=== PATIENT | male | born 1995 | race Caucasian/White ===

== ENCOUNTER 2016-08-23 12:05 | Inpatient (IN) | payer OTHER ==
[2016-08-23 17:28] VITALS: BMI 23.8
--- NOTE | 2016-08-23 20:36 | HP ---
COWS - Scale Resting Pulse: 0= [place] 80 or Below Sweatin=Flushed/Facial Moisture Restless Observation: 3= Extraneous Movement Pupil Size: 1= Pupils >than Normal Bone or Joint Aches: 2= Severe Diffuse Aches Runny Nose/ Eye Tearin= Runny Nose/Eyes GI Upset > 30mins: 2= Nausea/Diarrhea Tremor Observation: 1= Tremor [place], Not Seen Yawning Observation: 1= 1-2x During Session Anxiety or Irritability: 2=Irritable/Anxious Goose Flesh Skin: 3=Piloerection COWS Score: 19 CIWA Score - CIWA Score Nausea/Vomitin Muscle Tremors: 1-None Visible, but [place] Anxiety: 3 Agitation: 2 Paroxysmal Sweats: 3 Orientation: 1-Uncertain about Date Tacttile Disturbances: 0-None Auditory Disturbances: 0-None Visual Disturbances: 1-Very Mild Sensitivity Headache: 2-Mild CIWA-Ar Total Score: 15 Admission ROS [facility] - HPI Chief Complaint: WITHDRAWAL SYMPTOMS Allergies/Adverse Reactions: Allergies Allergy/AdvReac Type Severity Reaction Status Date / Time No Known Allergies Allergy Verified 08/23/16 17:36 History of Present Illness: 21 Y.O. MAN WITH AN EXTENSIVE HISTORY OF DRUG AND ALCOHOL DEPENDENCE IS HERE SEEKING DETOX. HE HAS HAD MULTIPLE ADMISSIONS HERE FOR DETOX AND HIS LAST BEING IN 04/2015. REPORTS HIS LONGEST PERIOD OF SOBRIETY HAS BEEN ONE YEAR. Exam Limitations: No Limitations - Ebola screening Have you traveled outside of the country in the last 21 days: No Have you had contact with anyone from an Ebola affected area: No Have you been sick,other than usual withdrawal symptoms: No Do you have a fever: No - Review of Systems Constitutional: Chills, Diaphoresis, Loss of Appetite, Malaise, Night Sweats, Changes in sleep EENT: reports: Tearing, Nose Congestion Respiratory: reports: No Symptoms reported Cardiac: reports: No Symptoms Reported GI: reports: Diarrhea, Nausea : reports: No Symptoms Reported Musculoskeletal: reports: Back Pain, Joint Pain, Neck Pain Integumentary: reports: No Symptoms Reported Neuro: reports: Headache Endocrine: reports: No Symptoms Reported Hematology: reports: No Symptoms Reported Psychiatric: reports: Mood/Affect Appropiate, Anxious, Depressed Other Systems: Reviewed and Negative Patient History - Patient Medical History Hx Anemia: No Hx Asthma: No Hx Chronic Obstructive Pulmonary Disease (COPD): No Hx Cancer: No Hx Cardiac Disorders: No Hx Congestive Heart Failure: No Hx Hypertension: No Hx Hypercholesterolemia: No Hx Pacemaker: No HX Cerebrovascular Accident: No Hx Seizures: No Hx Dementia: No Hx Diabetes: No Hx Gastrointestinal Disorders: No Hx Liver Disease: No Hx Genitourinary Disorders: No Hx Sexually Transmitted Disorders: No Hx Renal Disease (ESRD): No Hx Thyroid Disease: No Hx Human Immunodeficiency Virus (HIV): No (last 11/20 negative) Hx Hepatitis C: No Hx Depression: Yes Hx Suicide Attempt: No Hx Bipolar Disorder: No Hx Schizophrenia: No - Patient Surgical History Past Surgical History: No Hx Neurologic Surgery: No Hx Cataract Extraction: No Hx Cardiac Surgery: No Hx Lung Surgery: No Hx Breast Surgery: No Hx Breast Biopsy: No Hx Abdominal Surgery: No Hx Appendectomy: No Hx Cholecystectomy: No Hx Genitourinary Surgery: No Hx Section: No Hx Orthopedic Surgery: No Anesthesia Reaction: No - PPD History Previous Implant?: Yes Documented Results: Negative w/o proof Implanted On Prior [facility] Admission?: Yes Date: 12/03/14 Results: 0 MM PPD to be Administered?: Yes - Reproductive History Patient is a Female of Child Bearing Age (11 -55 yrs old): No - Smoking Cessation Smoking history: Current every day smoker Have you smoked in the past 12 months: Yes Aproximately how many cigarettes per day: 10 Cigars Per Day: 0 Hx Chewing Tobacco Use: No Initiated information on smoking cessation: Yes 'Breaking Loose' booklet given: 08/23/16 - Substance & Tx. History Hx Alcohol Use: Yes Hx Substance Use: Yes Substance Use Type: Alcohol, Cocaine, Heroin, Marijuana Hx Substance Use Treatment: Yes (LAST DETOX WAS HERE: 04/2015; LAST REHAB 08/[address] [facility]) - Substances Abused Heroin Route: Injection Frequency: Daily Amount used: 10 BAGS Age of first use: 17 Date of Last Use: 08/23/16 Alcohol Route: Oral Frequency: Daily Amount used: 2 PINTS RUM Age of first use: 13 Date of Last Use: 08/23/16 Crack Route: Smoking Frequency: Daily Amount used: $50 Age of first use: 19 Date of Last Use: 08/23/16 Marijuana/Hashish Route: Smoking Frequency: 1-2 times per week Amount used: $20 Age of first use: 14 Date of Last Use: 08/16/16 Family Disease History - Family Disease History Family History: Denies Admission Physical Exam [facility] - Vital Signs Vital Signs: Vital Signs - 24 hr 08/23/16 17:26 Temperature 97.1 F L Pulse Rate 59 L Respiratory 20 Rate Blood Pressure 119/76 - Physical General Appearance: Yes: Irritable, Anxious HEENTM: Yes: Normocephalic, Normal Voice Respiratory: Yes: Lungs Clear, Normal Breath Sounds, No Respiratory Distress, No Accessory Muscle Use Neck: Yes: No masses,lesions,Nodules, Trachea in good position Breast: Yes: Breast Exam Deferred Cardiology: Yes: Regular Rhythm, Bradycardia Abdominal: Yes: Non Tender, Flat, Soft Genitourinary: Yes: Other (NO COMPLAINTS REPORTED) Back: Yes: Normal Inspection Musculoskeletal: Yes: Gait Steady Extremities: Yes: Normal Inspection, Normal Range of Motion, Non-Tender Neurological: Yes: Alert, Normal Mood/Affect, Normal Response Integumentary: Yes: Normal Color, Dry, Warm, Track Christian Lymphatic: Yes: Within Normal Limits - Diagnostic (1) Alcohol dependence with uncomplicated withdrawal Current Visit: Yes Status: Chronic (2) Cannabis dependence Current Visit: Yes Status: Chronic (3) Cocaine dependence with withdrawal Current Visit: Yes Status: Chronic (4) Sedative, hypnotic, or anxiolytic withdrawal Current Visit: Yes Status: Chronic (5) Nicotine dependence Current Visit: Yes Status: Chronic Qualifiers: Nicotine product type: cigarettes Substance use status: uncomplicated Qualified Code(s): F17.210 - Nicotine dependence, cigarettes, uncomplicated Cleared for Admission [facility] - Detox or Rehab [facility] Level of Care: Medically Managed Detox Regimen/Protocol: Methadone/Valium [facility] Breath Alcohol Content Breath Alcohol Content: 0 Urine Drug Screen - Results Drug Screen Negative: No Urine Drug Screen Results: THC-Marijuana, JULI-Cocaine, OPI-Opiates
[2016-08-23] MEDS ORDERED: MAGNESIUM CITRATE 300 ML BOTTLE PO PRN (20:45)
[2016-08-23] MEDS ORDERED: LOPERAMIDE HCL 2 MG CAPSULE PO PRN (20:45)
[2016-08-23] MEDS ORDERED: diazePAM 5 MG TABLET PO ONE (20:45)
[2016-08-23] MEDS ORDERED: guaiFENesin/D-METHORPHAN HB 10 ML UNIT-DOSE CUPS PO PRN (20:45)
[2016-08-23] MEDS ORDERED: ACETAMINOPHEN 325 MG TABLET (FP) PO PRN (20:45)
[2016-08-23] MEDS ORDERED: NICOTINE POLACRILEX 2 MG GUM BC PRN (20:45)
[2016-08-23] MEDS ORDERED: METHADONE HCL 10 MG TABLET (FOR DETOX USE ONLY) PO ONE ×2 (20:45→23:00)
[2016-08-23] MEDS ORDERED: hydrOXYzine PAMOATE 50 MG CAPSULE (FP) PO PRN (20:45)
[2016-08-23] MEDS ORDERED: MENTHOL/PHENOL 1 EACH UD MM PRN (20:45)
[2016-08-23] MEDS ORDERED: diphenhydrAMINE HCL 50 MG CAPSULE PO PRN (20:45)
[2016-08-23] MEDS ORDERED: MAG HYDROX/AL HYDROX/SIMETH 30 ML UNIT-DOSE CUP PO PRN (20:45)
[2016-08-23] MEDS ORDERED: P-EPHED 60MG/TRIPROLIDI 2.5MG TABLET PO PRN (20:45)
[2016-08-23] MEDS ORDERED: MAGNESIUM HYDROX 2400MG/30ML ORAL SUSPENSION 30 ML CUP PO PRN (20:45)
[2016-08-23] MEDS ORDERED: IBUPROFEN 400 MG TABLET (FP) PO PRN (20:45)
[2016-08-23] MEDS: diazePAM 5 MG TABLET PO SCH (22:33)
[2016-08-23] MEDS: THIAMINE HCL 100 MG TABLET (FP) PO SCH (22:33)
[2016-08-23 22:58] LABS: URINE APPEARANCE TURBID; URINE BILIRUBIN NEGATIVE (NEGATIVE); URINE BLOOD NEGATIVE (NEGATIVE); URINE COLOR YELLOW; URINE GLUCOSE (UA) NEGATIVE (NEGATIVE); URINE KETONE NEGATIVE (NEGATIVE); URINE LEUK ESTERASE NEGATIVE (NEGATIVE); URINE NITRITE NEGATIVE (NEGATIVE)
[2016-08-23 23:12] LABS: URINE PROTEIN 1+ (NEGATIVE)
[2016-08-23 23:18] LABS: CALCIUM OXALATE CRYSTALS RARE /hpf (NONE SEEN); URINE MUCUS MANY; URINE RBC 3 /hpf (0-3)
[2016-08-24] MEDS: diazePAM 5 MG TABLET PO PRN ×5 (02:01→19:57)
[2016-08-24] MEDS: diazePAM 5 MG TABLET PO SCH ×3 (05:02→22:27)
[2016-08-24] MEDS ORDERED: METHADONE HCL 10 MG TABLET (FOR DETOX USE ONLY) PO SCH (10:00)
[2016-08-24 10:23] LABS: MCHC 33.6 g/dl (32.0-35.9); MEAN CELL VOLUME 86.4 fl (80-96); MEAN PLT VOLUME 7.5 fl (7.5-11.1); PLATELET COUNT 161 K/MM3 (134-434); RDW 12.9 % (11.9-15.9); WHITE BLOOD COUNT 4.5 K/mm3 (4.0-10.0)
[2016-08-24] MEDS: NICOTINE 14 MG/24 HOURS TOPICAL PATCH TD SCH (10:26)
[2016-08-24] MEDS: PRENATAL VITAMINS W/ FOLIC ACID TABLET (FP) PO SCH (10:26)
[2016-08-24 10:39] LABS: ALBUMIN 4.1 g/dl (3.4-5.0); ALK PHOS 58 U/L (45-117); ANION GAP 7 (8-16); BILIRUBIN,TOTAL 0.9 mg/dL (0.2-1.0); CALCIUM 9.4 mg/dL (8.5-10.1); CO2 32 mmol/L (21-32); GLUCOSE,RANDOM 79 mg/dL (74-106); SGOT/AST 19 U/L (15-37); SGPT/ALT 26 U/L (12-78); TOT PROT 7.4 g/dl (6.4-8.2)
--- NOTE | 2016-08-24 11:10 | EKG ---
Test Reason : Blood Pressure : / mmHG Vent. Rate : 056 BPM Atrial Rate : 056 BPM P-R Int : 096 ms QRS Dur : 088 ms QT Int : 444 ms P-R-T Axes : -05 073 039 degrees QTc Int : 428 ms SINUS BRADYCARDIA WITH SHORT NC OTHERWISE NORMAL ECG NO PREVIOUS ECGS AVAILABLE Confirmed by OSIEL ALAN MD ([id number]) on 08/24/2016 11:09:45 AM Referred By: Confirmed By:OSIEL ALAN MD
--- NOTE | 2016-08-24 11:32 | PN ---
[facility] CIWA - CIWA Score Nausea/Vomitin Muscle Tremors: 1-None Visible, but [place] Anxiety: 3 Agitation: 2 Paroxysmal Sweats: 3 Orientation: 0-Oriented Tacttile Disturbances: 3-Moderate Itch/Numb/Burn Auditory Disturbances: 2-Mild Harshness/Frighten Visual Disturbances: 2-Mild Sensitivity Headache: 0-None Present CIWA-Ar Total Score: 18 S COWS - Scale Resting Pulse: 0= [place] 80 or Below Sweatin= Chills/Flushing Restless Observation: 1= Difficult to Sit Still Pupil Size: 0= Normal to Room Light Bone or Joint Aches: 2= Severe Diffuse Aches Runny Nose/ Eye Tearin= Nasal Congestion GI Upset > 30mins: 1= Stomach Cramp Tremor Observation of Outstretched Hands: 0= None Yawning Observation: 1= 1-2x During Session Anxiety or Irritability: 2=Irritable/Anxious Goose Flesh Skin: 3=Piloerection COWS Score: 12 S Progress Note (SOAP) Subjective: Interrupted sleep, Sweating, Stomach Cramping, Constipation, Body Aches. Objective: PT. A & O X 3, OBSERVED AMBULATING ON UNIT. NO ACUTE DISTRESS. 08/24/16 11:29 Vital Signs Temperature 96.2 F L 08/24/16 09:53 Pulse Rate 73 08/24/16 09:53 Respiratory Rate 20 08/24/16 09:53 Blood Pressure 113/75 08/24/16 09:53 O2 Sat by Pulse Oximetry (%) Laboratory Tests 08/23/16 08/24/16 08/24/16 20:56 06:30 06:30 WBC 4.5 RBC 5.08 Hgb 14.7 Hct 43.9 MCV 86.4 MCH 29.0 MCHC 33.6 RDW 12.9 Plt Count 161 D MPV 7.5 Sodium 139 Potassium 4.4 Chloride 100 Carbon Dioxide 32 Anion Gap 7 L BUN 9 Creatinine 1.0 Creat Clearance w eGFR > 60 Random Glucose 79 Calcium 9.4 Total Bilirubin 0.9 AST 19 ALT 26 D Alkaline Phosphatase 58 Total Protein 7.4 Albumin 4.1 Urine Color Yellow Urine Appearance Turbid Urine pH 5.0 Urine Protein 1+ H Urine Glucose (UA) Negative Urine Ketones Negative Urine Blood Negative Urine Nitrite Negative Urine Bilirubin Negative Urine Urobilinogen 2.0 Ur Leukocyte Esterase Negative Urine RBC 3 Urine WBC None Calcium Oxalate Crystal Rare Urine Mucus Many LABS NOTED. RPR RESULT PENDING. 08/24/16 11:32 Assessment: 08/24/16 11:31 WITHDRAWAL SYMPTOMS. Plan: CONTINUE DETOX.
--- NOTE | 2016-08-24 11:42 | CONSULT ---
[facility] Psychiatric Consult - Data Date of interview: 08/24/16 Admission source: [facility] Identifying data: This is one of multiple admissions to [facility] for this 21 y/ o male seeking detox treatment on 3 for marijuana,alcohol, cocaine (crack) and heroin dependence.Patient is single without children, domiciled and supported by his parents. Substance Abuse History: heavy,Patient reportedly started using heroin at age 17 (10 bags daily via IV route),alcohol since age 13 (daily consumption of 2 pints of rum),marijuana (20 dollars for use twice a week),crack (100 dollars a day) since age 19.Mr Martinez reports smoking 1/2 pack of cigarettes/ day.Substances are reported used as of 08/23/16. Medical History: Patient endorses good general health. Psychiatric History: Patient,to this interviewer,denies history of psychiatric illness or hospitalizations.However a review of records reveals this account by Dr Starr,[facility] psychiatrist at [facility] (imported note of 04/03/15) : " reports as child he started exhibiting symptoms of OCD and Social Anxiety Disorder. 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 At 14, while mandated to [facility] for 3 months, he saw a psychiatrist, was diagnosed with OCD & Social Anxiety Disorder and treated with Prozac and Klonopin. For some reason, he said he was discharged with no referal and medication. At age 16 while in rehab at [facility] for 28 days, he was prescribed Luvox. After he was discharged from [facility], he saw a private psychiatrist in [place], [place] for 4 months and was continued on Luvox and prescribed Klonopin as well ." End of report.Mr Martinez remains unconcerned by this report which contradicts his current statements.He endorses insomnia and requests addition of zolpidem to this regimen of medications. Physical/Sexual Abuse/Trauma History: Patient denies. Additional Comment: Urine Drug Screen Results: THC-Marijuana, JULI-Cocaine, OPI- Opiates.Noted from [facility] report. Mental Status Exam - Mental Status Exam Alert and Oriented to: Time, Place, Person Cognitive Function: Good Patient Appearance: Well Groomed Mood: Euthymic Affect: Appropriate, Normal Range Patient Behavior: Appropriate, Cooperative Speech Pattern: Clear Voice Loudness: Normal Thought Process: Goal Oriented Thought Disorder: Not Present Hallucinations: Denies Suicidal Ideation: Denies Homicidal Ideation: Denies Insight/Judgement: Poor Sleep: Poorly, Difficulty falling asleep Appetite: Good Muscle strength/Tone: Normal Gait/Station: Normal Psychiatric Findings - Problem List ([place] 1, 2,3) (1) Alcohol dependence with uncomplicated withdrawal Current Visit: Yes Status: Acute (2) Cannabis dependence Current Visit: Yes Status: Acute (3) Cocaine dependence with withdrawal Current Visit: Yes Status: Acute (4) Sedative, hypnotic, or anxiolytic withdrawal Current Visit: Yes Status: Acute (5) Opioid dependence with withdrawal Current Visit: Yes Status: Acute (6) Nicotine dependence Current Visit: Yes Status: Acute Qualifiers: Nicotine product type: cigarettes Substance use status: uncomplicated Qualified Code(s): F17.210 - Nicotine dependence, cigarettes, uncomplicated (7) Substance induced mood disorder Current Visit: Yes Status: Acute (8) Insomnia Current Visit: Yes Status: Acute - Initial Treatment Plan Initial Treatment Plan: Psychoeducation provided.Previous records reviewed.[facility] report is appreciated.Detoxification is under way.Ambien 10 mg po hs prn.Patient is made aware of the potential for parasomnias.He is in agreement with this careplan.Observation.
[2016-08-24] MEDS ORDERED: ONDANSETRON *ODT* 4 MG TABLET SL PRN (21:05)
[2016-08-24] MEDS: BACITRACIN 0.9 GM PACKET TP SCH (22:27)
[2016-08-24] MEDS: ZOLPIDEM TARTRATE 10 MG TABLET (PARK CARE ONLY) PO PRN (22:27)
[2016-08-24] MEDS: THIAMINE HCL 100 MG TABLET (FP) PO SCH (22:27)
[2016-08-25] MEDS: diazePAM 5 MG TABLET PO PRN ×3 (05:41→19:28)
[2016-08-25] MEDS ORDERED: TRIMETHOBENZAMIDE HCL 200MG/2ML INJ IM ONE (07:04)
--- NOTE | 2016-08-25 07:06 | PN ---
S Progress Note Note: HAVING HICCUP,TO GIVE TIGAN 200 MGS IM,CONTINUE DETOX
[2016-08-25] MEDS ORDERED: METOCLOPRAMIDE HCL 10 MG TABLET (FP) PO ONE (09:56)
[2016-08-25] MEDS: diazePAM 5 MG TABLET PO SCH ×2 (10:29→22:27)
[2016-08-25] MEDS: BACITRACIN 0.9 GM PACKET TP SCH ×2 (10:29→22:26)
[2016-08-25] MEDS: PRENATAL VITAMINS W/ FOLIC ACID TABLET (FP) PO SCH (10:30)
[2016-08-25] MEDS: METHADONE HCL 5 MG TABLET (FOR DETOX USE ONLY) PO SCH (10:30)
[2016-08-25] MEDS: NICOTINE 14 MG/24 HOURS TOPICAL PATCH TD SCH (10:30)
--- NOTE | 2016-08-25 12:39 | PN ---
[facility] CIWA - CIWA Score Nausea/Vomitin-Int. Nausea w/Dry Heave Muscle Tremors: 2 Anxiety: 3 Agitation: 3 Paroxysmal Sweats: 3 Orientation: 0-Oriented Tacttile Disturbances: 2-Mild Itch/Numbness/Burn Auditory Disturbances: 0-None Visual Disturbances: 0-None Headache: 0-None Present CIWA-Ar Total Score: 17 S COWS - Scale Resting Pulse: 0= [place] 80 or Below Sweatin=Flushed/Facial Moisture Restless Observation: 1= Difficult to Sit Still Pupil Size: 0= Normal to Room Light Bone or Joint Aches: 1= Mild Discomfort Runny Nose/ Eye Tearin= Runny Nose/Eyes GI Upset > 30mins: 2= Nausea/Diarrhea Tremor Observation of Outstretched Hands: 0= None Yawning Observation: 1= 1-2x During Session Anxiety or Irritability: 2=Irritable/Anxious Goose Flesh Skin: 3=Piloerection COWS Score: 14 [facility] Progress Note (SOAP) Subjective: Sweating, Stomach Cramping, Nausea. Pt. also reporting hiccups persisting since last night. Objective: PT. A & O X 3, OBSERVED AMBULATING ON UNIT. NO ACUTE DISTRESS. 08/25/16 12:37 Vital Signs Temperature 96.7 F L 08/25/16 09:18 Pulse Rate 62 08/25/16 09:18 Respiratory Rate 18 08/25/16 09:18 Blood Pressure 96/53 08/25/16 09:18 O2 Sat by Pulse Oximetry (%) Laboratory Tests 08/23/16 08/24/16 08/24/16 20:56 06:30 06:30 WBC 4.5 RBC 5.08 Hgb 14.7 Hct 43.9 MCV 86.4 MCH 29.0 MCHC 33.6 RDW 12.9 Plt Count 161 D MPV 7.5 Sodium 139 Potassium 4.4 Chloride 100 Carbon Dioxide 32 Anion Gap 7 L BUN 9 Creatinine 1.0 Creat Clearance w eGFR > 60 Random Glucose 79 Calcium 9.4 Total Bilirubin 0.9 AST 19 ALT 26 D Alkaline Phosphatase 58 Total Protein 7.4 Albumin 4.1 Urine Color Yellow Urine Appearance Turbid Urine pH 5.0 Ur Specific [place] 1.025 Urine Protein 1+ H Urine Glucose (UA) Negative Urine Ketones Negative Urine Blood Negative Urine Nitrite Negative Urine Bilirubin Negative Urine Urobilinogen 2.0 Ur Leukocyte Esterase Negative Urine RBC 3 Urine WBC None Calcium Oxalate Crystal Rare Urine Mucus Many RPR Titer 08/24/16 06:30 WBC RBC Hgb Hct MCV MCH MCHC RDW Plt Count MPV Sodium Potassium Chloride Carbon Dioxide Anion Gap BUN Creatinine Creat Clearance w eGFR Random Glucose Calcium Total Bilirubin AST ALT Alkaline Phosphatase Total Protein Albumin Urine Color Urine Appearance Urine pH Ur Specific [place] Urine Protein Urine Glucose (UA) Urine Ketones Urine Blood Urine Nitrite Urine Bilirubin Urine Urobilinogen Ur Leukocyte Esterase Urine RBC Urine WBC Calcium Oxalate Crystal Urine Mucus RPR Titer Nonreactive LABS NOTED. Assessment: 08/25/16 12:37 WITHDRAWAL SYMPTOMS. Plan: CONTINUE DETOX. REGLAN, 10 MG PO X 1 FOR NAUSEA / HICCUPS.
[2016-08-25] MEDS ORDERED: chlorproMAZINE HCL 25 MG TABLET PO ONE (15:15)
[2016-08-25] MEDS ORDERED: BACLOFEN 10 MG TABLET (FP) PO ONE ×2 (15:25→23:02)
--- NOTE | 2016-08-25 15:57 | PN ---
[facility] Progress Note Note: Patient reports that hiccups are persisting with no effect from dose of Reglan administered earlier. Baclofen, 10 mg PO X 1 ordered. Will continue to monitor. Buck Juárez NP
[2016-08-25] MEDS: THIAMINE HCL 100 MG TABLET (FP) PO SCH (22:27)
[2016-08-25] MEDS: CYCLOBENZAPRINE HCL 10 MG TABLET (FP) PO PRN (22:27)
[2016-08-25] MEDS: ZOLPIDEM TARTRATE 10 MG TABLET (PARK CARE ONLY) PO PRN (22:27)
[2016-08-26] MEDS: diazePAM 5 MG TABLET PO PRN ×3 (05:56→19:57)
[2016-08-26] MEDS: diazePAM 5 MG TABLET PO SCH ×2 (10:32→22:27)
[2016-08-26] MEDS: PRENATAL VITAMINS W/ FOLIC ACID TABLET (FP) PO SCH (10:32)
[2016-08-26] MEDS: METHADONE HCL 5 MG TABLET (FOR DETOX USE ONLY) PO SCH (10:32)
[2016-08-26] MEDS: BACITRACIN 0.9 GM PACKET TP SCH ×2 (10:32→22:28)
[2016-08-26] MEDS: NICOTINE 14 MG/24 HOURS TOPICAL PATCH TD SCH (10:35)
--- NOTE | 2016-08-26 13:11 | PN ---
[facility] Progress Note (SOAP) Subjective: Interrupted Sleep, Anxious. Patient reports that hiccups that were occurring yesterday have since resolved. Objective: PT. A & O X 3, OBSERVED AMBULATING ON UNIT. NO ACUTE DISTRESS. PT. DENIES CHEST PAIN. 08/26/16 13:09 Vital Signs Temperature 98.4 F 08/26/16 09:18 Pulse Rate 56 L 08/26/16 09:18 Respiratory Rate 18 08/26/16 09:18 Blood Pressure 102/70 08/26/16 09:18 O2 Sat by Pulse Oximetry (%) Laboratory Tests 08/23/16 08/24/16 08/24/16 20:56 06:30 06:30 WBC 4.5 RBC 5.08 Hgb 14.7 Hct 43.9 MCV 86.4 MCH 29.0 MCHC 33.6 RDW 12.9 Plt Count 161 D MPV 7.5 Sodium 139 Potassium 4.4 Chloride 100 Carbon Dioxide 32 Anion Gap 7 L BUN 9 Creatinine 1.0 Creat Clearance w eGFR > 60 Random Glucose 79 Calcium 9.4 Total Bilirubin 0.9 AST 19 ALT 26 D Alkaline Phosphatase 58 Total Protein 7.4 Albumin 4.1 Urine Color Yellow Urine Appearance Turbid Urine pH 5.0 Ur Specific [place] 1.025 Urine Protein 1+ H Urine Glucose (UA) Negative Urine Ketones Negative Urine Blood Negative Urine Nitrite Negative Urine Bilirubin Negative Urine Urobilinogen 2.0 Ur Leukocyte Esterase Negative Urine RBC 3 Urine WBC None Calcium Oxalate Crystal Rare Urine Mucus Many RPR Titer 08/24/16 06:30 WBC RBC Hgb Hct MCV MCH MCHC RDW Plt Count MPV Sodium Potassium Chloride Carbon Dioxide Anion Gap BUN Creatinine Creat Clearance w eGFR Random Glucose Calcium Total Bilirubin AST ALT Alkaline Phosphatase Total Protein Albumin Urine Color Urine Appearance Urine pH Ur Specific [place] Urine Protein Urine Glucose (UA) Urine Ketones Urine Blood Urine Nitrite Urine Bilirubin Urine Urobilinogen Ur Leukocyte Esterase Urine RBC Urine WBC Calcium Oxalate Crystal Urine Mucus RPR Titer Nonreactive LABS NOTED. Assessment: 08/26/16 13:09 WITHDRAWAL SYMPTOMS. Plan: CONTINUE DETOX. INCREASE PO FLUID INTAKE.
[2016-08-26] MEDS: THIAMINE HCL 100 MG TABLET (FP) PO SCH (22:27)
[2016-08-26] MEDS: ZOLPIDEM TARTRATE 10 MG TABLET (PARK CARE ONLY) PO PRN (22:27)
[2016-08-26] MEDS: CYCLOBENZAPRINE HCL 10 MG TABLET (FP) PO PRN (22:27)
[2016-08-27] MEDS ORDERED: METHADONE HCL 10 MG TABLET (FOR DETOX USE ONLY) PO SCH (10:00)
[2016-08-27] MEDS ORDERED: diazePAM 5 MG TABLET PO SCH (10:00)
[2016-08-27] MEDS: PRENATAL VITAMINS W/ FOLIC ACID TABLET (FP) PO SCH (10:22)
[2016-08-27] MEDS: BACITRACIN 0.9 GM PACKET TP SCH ×2 (10:22→21:51)
[2016-08-27] MEDS: NICOTINE 14 MG/24 HOURS TOPICAL PATCH TD SCH (10:23)
--- NOTE | 2016-08-27 21:29 | PN ---
[facility] Progress Note (SOAP) Subjective: Interrupted Sleep. Objective: PT. A & O X 3, OBSERVED AMBULATING ON UNIT. NO ACUTE DISTRESS. 08/27/16 21:27 Vital Signs Temperature 97.9 F 08/27/16 18:18 Pulse Rate 61 08/27/16 18:18 Respiratory Rate 101 H 08/27/16 18:18 Blood Pressure 103/71 08/27/16 18:18 O2 Sat by Pulse Oximetry (%) Laboratory Tests 08/23/16 08/24/16 08/24/16 20:56 06:30 06:30 WBC 4.5 RBC 5.08 Hgb 14.7 Hct 43.9 MCV 86.4 MCH 29.0 MCHC 33.6 RDW 12.9 Plt Count 161 D MPV 7.5 Sodium 139 Potassium 4.4 Chloride 100 Carbon Dioxide 32 Anion Gap 7 L BUN 9 Creatinine 1.0 Creat Clearance w eGFR > 60 Random Glucose 79 Calcium 9.4 Total Bilirubin 0.9 AST 19 ALT 26 D Alkaline Phosphatase 58 Total Protein 7.4 Albumin 4.1 Urine Color Yellow Urine Appearance Turbid Urine pH 5.0 Ur Specific [place] 1.025 Urine Protein 1+ H Urine Glucose (UA) Negative Urine Ketones Negative Urine Blood Negative Urine Nitrite Negative Urine Bilirubin Negative Urine Urobilinogen 2.0 Ur Leukocyte Esterase Negative Urine RBC 3 Urine WBC None Calcium Oxalate Crystal Rare Urine Mucus Many RPR Titer 08/24/16 06:30 WBC RBC Hgb Hct MCV MCH MCHC RDW Plt Count MPV Sodium Potassium Chloride Carbon Dioxide Anion Gap BUN Creatinine Creat Clearance w eGFR Random Glucose Calcium Total Bilirubin AST ALT Alkaline Phosphatase Total Protein Albumin Urine Color Urine Appearance Urine pH Ur Specific [place] Urine Protein Urine Glucose (UA) Urine Ketones Urine Blood Urine Nitrite Urine Bilirubin Urine Urobilinogen Ur Leukocyte Esterase Urine RBC Urine WBC Calcium Oxalate Crystal Urine Mucus RPR Titer Nonreactive LABS NOTED. Assessment: 08/27/16 21:28 WITHDRAWAL SYMPTOMS. Plan: CONTINUE DETOX.
[2016-08-27] MEDS: ZOLPIDEM TARTRATE 10 MG TABLET (PARK CARE ONLY) PO PRN (21:51)
[2016-08-27] MEDS: THIAMINE HCL 100 MG TABLET (FP) PO SCH (21:51)
[2016-08-27] MEDS: CYCLOBENZAPRINE HCL 10 MG TABLET (FP) PO PRN (21:51)
[2016-08-28] MEDS ORDERED: METHADONE HCL 5 MG TABLET (FOR DETOX USE ONLY) PO SCH (06:00)
[2016-08-28 06:01] VITALS: BP 99/65; PULSE 61; TEMP 96.7
--- NOTE | 2016-08-28 13:00 | DS ---
[facility] Detox Discharge Summary Admission Date: 08/23/16 Discharge Date: 08/28/16 - History Present History: Alcohol Dependence, Cocaine Dependence, Opioid Dependence Additional Comments: Noted with hypotension: asymptomatic, encouraged to drink lots of water Pertinent Past History: Denies - Physical Exam Results Vital Signs: Vital Signs Temperature 96.7 F L 08/28/16 06:00 Pulse Rate 61 08/28/16 06:00 Respiratory Rate 16 08/28/16 06:00 Blood Pressure 99/65 08/28/16 06:00 O2 Sat by Pulse Oximetry (%) Pertinent Admission Physical Exam Findings: Withdrawal symptoms Laboratory Tests 08/23/16 08/24/16 08/24/16 20:56 06:30 06:30 WBC 4.5 RBC 5.08 Hgb 14.7 Hct 43.9 MCV 86.4 MCH 29.0 MCHC 33.6 RDW 12.9 Plt Count 161 D MPV 7.5 Sodium 139 Potassium 4.4 Chloride 100 Carbon Dioxide 32 Anion Gap 7 L BUN 9 Creatinine 1.0 Creat Clearance w eGFR > 60 Random Glucose 79 Calcium 9.4 Total Bilirubin 0.9 AST 19 ALT 26 D Alkaline Phosphatase 58 Total Protein 7.4 Albumin 4.1 Urine Color Yellow Urine Appearance Turbid Urine pH 5.0 Ur Specific [place] 1.025 Urine Protein 1+ H Urine Glucose (UA) Negative Urine Ketones Negative Urine Blood Negative Urine Nitrite Negative Urine Bilirubin Negative Urine Urobilinogen 2.0 Ur Leukocyte Esterase Negative Urine RBC 3 Urine WBC None Calcium Oxalate Crystal Rare Urine Mucus Many RPR Titer 08/24/16 06:30 WBC RBC Hgb Hct MCV MCH MCHC RDW Plt Count MPV Sodium Potassium Chloride Carbon Dioxide Anion Gap BUN Creatinine Creat Clearance w eGFR Random Glucose Calcium Total Bilirubin AST ALT Alkaline Phosphatase Total Protein Albumin Urine Color Urine Appearance Urine pH Ur Specific [place] Urine Protein Urine Glucose (UA) Urine Ketones Urine Blood Urine Nitrite Urine Bilirubin Urine Urobilinogen Ur Leukocyte Esterase Urine RBC Urine WBC Calcium Oxalate Crystal Urine Mucus RPR Titer Nonreactive Labs noted - Treatment Hospital Course: Detox Protocol Followed, Detoxed Safely, Responded well, Discharged Condition Good - Medication Discharge Medications: Ambulatory Orders NK [No Known Home Medication] 04/02/15 - Diagnosis (1) Alcohol dependence with uncomplicated withdrawal Current Visit: Yes Status: Acute (2) Cocaine dependence with withdrawal Current Visit: Yes Status: Chronic (3) Nicotine dependence Current Visit: Yes Status: Chronic Qualifiers: Nicotine product type: cigarettes Substance use status: uncomplicated Qualified Code(s): F17.210 - Nicotine dependence, cigarettes, uncomplicated (4) Opioid dependence with withdrawal Current Visit: Yes Status: Acute (5) Hypotension Current Visit: Yes Status: Acute - AMA Did Patient Leave Against Medical Advice: No
== END 2016-08-28 09:10 | disposition home or self-care (01) | DRG 773 ==
LOC: YASAS 12:05 → Y3N 17:40
PROVIDERS: ADMIT Internal Medicine Addiction Medicine; ATTEND Internal Medicine Addiction Medicine
PROC: HZ2ZZZZ Detoxification Services for Substance Abuse Treatment (ICD-10-PCS; principal; 2016-08-28)
DX: F11.23 Opioid dependence with withdrawal (principal); F13.230 Sedative, hypnotic or anxiolytic dependence with withdrawal, uncomplicated; F10.230 Alcohol dependence with withdrawal, uncomplicated; F14.23 Cocaine dependence with withdrawal; F17.210 Nicotine dependence, cigarettes, uncomplicated; F19.24 Other psychoactive substance dependence with psychoactive substance-induced mood disorder; G47.00 Insomnia, unspecified; I95.9 Hypotension, unspecified
CPT/HCPCS: 36415; 80053; 81003; 81015; 85027; 86593; 93005; 93010; J0475

== ENCOUNTER 2016-10-14 10:41 | Inpatient (IN) | payer OTHER ==
[2016-10-14 13:54] VITALS: BMI 20.6
--- NOTE | 2016-10-14 20:51 | HP ---
COWS - Scale Resting Pulse: 1= [place] 81-100 Sweatin=Flushed/Facial Moisture Restless Observation: 3= Extraneous Movement Pupil Size: 1= Pupils >than Normal Bone or Joint Aches: 2= Severe Diffuse Aches Runny Nose/ Eye Tearin= Runny Nose/Eyes GI Upset > 30mins: 2= Nausea/Diarrhea Tremor Observation: 1= Tremor [place], Not Seen Yawning Observation: 1= 1-2x During Session Anxiety or Irritability: 1=Feels Anxious/Irritable Goose Flesh Skin: 3=Piloerection COWS Score: 19 CIWA Score - CIWA Score Nausea/Vomitin-Mild Nausea/No Vomiting Muscle Tremors: 1-None Visible, but [place] Anxiety: 2 Agitation: 2 Paroxysmal Sweats: 2 Orientation: 1-Uncertain about Date Tacttile Disturbances: 1-Very Mild Itch/Numbness Auditory Disturbances: 1-Very Mild Visual Disturbances: 1-Very Mild Sensitivity Headache: 2-Mild CIWA-Ar Total Score: 14 Admission ROS S - HPI Chief Complaint: WITHDRAWAL SYMPTOMS Allergies/Adverse Reactions: Allergies Allergy/AdvReac Type Severity Reaction Status Date / Time No Known Allergies Allergy Verified 10/14/16 16:01 History of Present Illness: 21 Y.O. MAN WITH A HISTORY OF DRUG AND ALCOHOL DEPENDENCE IS HERE SEEKING DETOX. HE WAS LAST HERE FOR DETOX IN 08/2016. HE REPORTS HIS LONGEST PERIOD CLEAN HAS BEEN 10 MONTHS. Exam Limitations: No Limitations - Ebola screening Have you traveled outside of the country in the last 21 days: No Have you had contact with anyone from an Ebola affected area: No Have you been sick,other than usual withdrawal symptoms: No Do you have a fever: No - Review of Systems Constitutional: Chills, Diaphoresis, Loss of Appetite, Changes in sleep, Unintentional Wgt. Loss EENT: reports: Tearing, Nose Congestion Respiratory: reports: Shortness of Breath Cardiac: reports: No Symptoms Reported GI: reports: Constipated, Abdominal cramping : reports: No Symptoms Reported Musculoskeletal: reports: Back Pain, Neck Pain Integumentary: reports: No Symptoms Reported Neuro: reports: No Symptoms reported Endocrine: reports: No Symptoms Reported Hematology: reports: No Symptoms Reported Psychiatric: reports: Orientated x3, Anxious, Depressed Other Systems: Reviewed and Negative Patient History - Patient Medical History Hx Anemia: No Hx Asthma: No Hx Chronic Obstructive Pulmonary Disease (COPD): No Hx Cancer: No Hx Cardiac Disorders: No Hx Congestive Heart Failure: No Hx Hypertension: No Hx Hypercholesterolemia: No Hx Pacemaker: No HX Cerebrovascular Accident: No Hx Seizures: No Hx Dementia: No Hx Diabetes: No Hx Gastrointestinal Disorders: No Hx Liver Disease: No Hx Genitourinary Disorders: No Hx Sexually Transmitted Disorders: No Hx Renal Disease (ESRD): No Hx Thyroid Disease: No Hx Human Immunodeficiency Virus (HIV): No (last 07/23 negative) Hx Hepatitis C: No Hx Depression: Yes Hx Suicide Attempt: No Hx Bipolar Disorder: No Hx Schizophrenia: No - Patient Surgical History Past Surgical History: No Hx Neurologic Surgery: No Hx Cataract Extraction: No Hx Cardiac Surgery: No Hx Lung Surgery: No Hx Breast Surgery: No Hx Breast Biopsy: No Hx Abdominal Surgery: No Hx Appendectomy: No Hx Cholecystectomy: No Hx Genitourinary Surgery: No Hx Section: No Hx Orthopedic Surgery: No Anesthesia Reaction: No - PPD History Previous Implant?: Yes Documented Results: Negative w/proof Implanted On Prior R Admission?: Yes Date: 08/25/16 Results: 0 mm PPD to be Administered?: No - Reproductive History Patient is a Female of Child Bearing Age (11 -55 yrs old): No - Smoking Cessation Smoking history: Current every day smoker Have you smoked in the past 12 months: Yes Aproximately how many cigarettes per day: 10 Cigars Per Day: 0 Hx Chewing Tobacco Use: No Initiated information on smoking cessation: Yes 'Breaking Loose' booklet given: 10/14/16 - Substance & Tx. History Hx Alcohol Use: Yes Hx Substance Use: Yes Substance Use Type: Alcohol, Cocaine, Heroin Hx Substance Use Treatment: Yes (DETOX: 08/2016; REHAB:08/2016) - Substances Abused Heroin Route: Injection Amount used: 10 bags Age of first use: 17 Date of Last Use: 10/14/16 Cocaine Route: Injection Frequency: Daily Amount used: $50 Age of first use: 17 Date of Last Use: 10/13/16 Alcohol Route: Oral Frequency: Daily Amount used: 2-3 40 oz beers Age of first use: 13 Date of Last Use: 10/14/16 Family Disease History - Family Disease History Family History: Denies Admission Physical Exam BHS - Vital Signs Vital Signs: Vital Signs - 24 hr 10/14/16 13:51 Temperature 97.1 F L Pulse Rate 99 H Respiratory 18 Rate Blood Pressure 130/76 - Physical General Appearance: Yes: No Apparent Distress, Nourished, Appropriately Dressed HEENTM: Yes: Hearing grossly Normal, Normocephalic, Normal Voice Respiratory: Yes: Chest Non-Tender, Lungs Clear, Normal Breath Sounds, No Respiratory Distress, No Accessory Muscle Use Neck: Yes: No masses,lesions,Nodules, Trachea in good position Breast: Yes: Breast Exam Deferred Cardiology: Yes: Regular Rhythm, Regular Rate Abdominal: Yes: Normal Bowel Sounds, Non Tender, Flat Genitourinary: Yes: Other (NO COMPLAINTS REPORTED) Back: Yes: Normal Inspection Musculoskeletal: Yes: Back pain Extremities: Yes: Normal Capillary Refill, Normal Inspection, Normal Range of Motion, Non-Tender Neurological: Yes: planning aide II-XII NML intact, Fully Oriented, Alert, Normal Mood/ Affect, Normal Response Integumentary: Yes: Track Christian Lymphatic: Yes: Within Normal Limits - Diagnostic (1) Alcohol dependence with uncomplicated withdrawal Current Visit: Yes Status: Chronic (2) Cannabis dependence Current Visit: Yes Status: Chronic (3) Opioid dependence with withdrawal Current Visit: Yes Status: Chronic (4) Cocaine dependence with withdrawal Current Visit: Yes Status: Chronic (5) Nicotine dependence Current Visit: Yes Status: Chronic Cleared for Admission [facility] - Detox or Rehab [facility] Level of Care: Medically Managed Detox Regimen/Protocol: Methadone/Valium [facility] Breath Alcohol Content Breath Alcohol Content: 0 Urine Drug Screen - Results Drug Screen Negative: No Urine Drug Screen Results: JULI-Cocaine, OPI-Opiates
[2016-10-14] MEDS ORDERED: METHADONE HCL 10 MG TABLET (FOR DETOX USE ONLY) PO ONE ×2 (21:04→23:00)
[2016-10-14] MEDS ORDERED: diazePAM 5 MG TABLET PO ONE (21:04)
[2016-10-14] MEDS ORDERED: MAGNESIUM HYDROX 2400MG/30ML ORAL SUSPENSION 30 ML CUP PO PRN (21:04)
[2016-10-14] MEDS ORDERED: hydrOXYzine PAMOATE 50 MG CAPSULE (FP) PO PRN (21:04)
[2016-10-14] MEDS ORDERED: MAG HYDROX/AL HYDROX/SIMETH 30 ML UNIT-DOSE CUP PO PRN (21:04)
[2016-10-14] MEDS ORDERED: LOPERAMIDE HCL 2 MG CAPSULE PO PRN (21:04)
[2016-10-14] MEDS ORDERED: MENTHOL/PHENOL 1 EACH UD MM PRN (21:04)
[2016-10-14] MEDS ORDERED: guaiFENesin/D-METHORPHAN HB 10 ML UNIT-DOSE CUPS PO PRN (21:04)
[2016-10-14] MEDS ORDERED: P-EPHED 60MG/TRIPROLIDI 2.5MG TABLET PO PRN (21:04)
[2016-10-14] MEDS ORDERED: IBUPROFEN 400 MG TABLET (FP) PO PRN (21:04)
[2016-10-14] MEDS ORDERED: ACETAMINOPHEN 325 MG TABLET (FP) PO PRN (21:04)
[2016-10-14] MEDS ORDERED: MAGNESIUM CITRATE 300 ML BOTTLE PO PRN (21:04)
[2016-10-14] MEDS ORDERED: diphenhydrAMINE HCL 50 MG CAPSULE PO PRN (21:04)
[2016-10-14] MEDS: THIAMINE HCL 100 MG TABLET (FP) PO SCH (21:40)
[2016-10-14] MEDS: diazePAM 5 MG TABLET PO SCH (22:35)
[2016-10-15 00:14] LABS: URINE APPEARANCE CLEAR; URINE BILIRUBIN NEGATIVE (NEGATIVE); URINE BLOOD NEGATIVE (NEGATIVE); URINE COLOR YELLOW; URINE GLUCOSE (UA) NEGATIVE (NEGATIVE); URINE KETONE NEGATIVE (NEGATIVE); URINE LEUK ESTERASE NEGATIVE (NEGATIVE); URINE NITRITE NEGATIVE (NEGATIVE); URINE PROTEIN NEGATIVE (NEGATIVE); URINE UROBILINOGEN NEGATIVE mg/dL (0.2-1.0)
[2016-10-15] MEDS: diazePAM 5 MG TABLET PO SCH ×3 (06:34→22:16)
--- NOTE | 2016-10-15 09:29 | EKG ---
Test Reason : Blood Pressure : / mmHG Vent. Rate : 057 BPM Atrial Rate : 057 BPM P-R Int : 126 ms QRS Dur : 088 ms QT Int : 428 ms P-R-T Axes : 071 074 044 degrees QTc Int : 416 ms SINUS BRADYCARDIA WITH SINUS ARRHYTHMIA OTHERWISE NORMAL ECG Confirmed by MD NURYS, KERRI ([id number]) on 10/15/2016 9:28:54 AM Referred By: Confirmed By:KERRI NUNO MD
[2016-10-15] MEDS ORDERED: METHADONE HCL 10 MG TABLET (FOR DETOX USE ONLY) PO SCH (10:00)
[2016-10-15] MEDS: diazePAM 5 MG TABLET PO PRN ×2 (10:25→20:07)
[2016-10-15] MEDS: PRENATAL VITAMINS W/ FOLIC ACID TABLET (FP) PO SCH (10:25)
[2016-10-15 10:57] LABS: MCH 28.9 pg (25.7-33.7); MCHC 33.2 g/dl (32.0-35.9); MEAN PLT VOLUME 8.2 fl (7.5-11.1); PLATELET COUNT 209 K/MM3 (134-434); RDW 13.2 % (11.9-15.9); WHITE BLOOD COUNT 4.6 K/mm3 (4.0-10.0)
[2016-10-15 11:06] LABS: ALBUMIN 3.9 g/dl (3.4-5.0); ANION GAP 6 (8-16); CALCIUM 8.9 mg/dL (8.5-10.1); CO2 31 mmol/L (21-32)
[2016-10-15 11:12] LABS: ALK PHOS 60 U/L (45-117); BILIRUBIN,TOTAL 0.8 mg/dL (0.2-1.0); GLUCOSE,RANDOM 82 mg/dL (74-106); SGOT/AST 16 U/L (15-37); SGPT/ALT 20 U/L (12-78); TOT PROT 7.1 g/dl (6.4-8.2)
--- NOTE | 2016-10-15 11:49 | CONSULT ---
[facility] Psychiatric Consult - Data Date of interview: 10/15/16 Admission source: [facility] Identifying data: Another admission to [facility] for this 21 y/o male seeking detox treatment on for marijuana,alcohol,cocaine (crack) and heroin dependence.Patient is single without children,domiciled and supported on food stamps. Substance Abuse History: Confirmed by patient in this interview. Smoking Cessation. Smoking history: Current every day smoker. Have you smoked in the past 12 months: Yes. Aproximately how many cigarettes per day: 10. Cigars Per Day: 0. Hx Chewing Tobacco Use: No. Initiated information on smoking cessation : Yes. 'Breaking Loose' booklet given: 10/14/16. - Substance & Tx. History. Hx Alcohol Use: Yes. Hx Substance Use: Yes. Substance Use Type: Alcohol, Cocaine, Heroin. Hx Substance Use Treatment: Yes (DETOX: 08/2016; REHAB:08/2016) . - Substances Abused. Heroin. Route: Injection. Amount used: 10 bags. Age of first use: 17. Date of Last Use: 10/14/16. Cocaine. Route: Injection. Frequency: Daily. Amount used: $50. Age of first use: 17. Date of Last Use: 10/13/16. Alcohol. Route: Oral. Frequency: Daily. Amount used: 2-3 40 oz beers. Age of first use: 13. Date of Last Use: 10/14/16 Medical History: Patient denies medical problems. Psychiatric History: Patient denies history of psychiatric illness or hospitalizations.Previous records indicate otherwise,as evidenced by this report from Dr Starr (04/03/16) : " as child he started exhibiting symptoms of OCD and Social Anxiety Disorder. Told chart writer that he has a problem with frequent hand washing and rearranging things as well as feeling highly anxious in public situation to the point of experiencing symptoms of anxiety attacks. At 14, while mandated to [facility] for 3 months, he saw a psychiatrist, was diagnosed with OCD & Social Anxiety Disorder and treated with Prozac and Klonopin. For some reason, he said he was discharged with no referal and medication. At age 16 while in rehab at [facility] for 28 days, he was prescribed Luvox. After he was discharged from [facility], he saw a private psychiatrist in [place], [place] for 4 months and was continued on Luvox and prescribed Klonopin as well ." End of report.Mr Juan disagrees with this report.Denies history of suicide attempts. Physical/Sexual Abuse/Trauma History: Patient denies. Additional Comment: Urine Drug Screen Results: JULI-Cocaine, OPI-Opiates.Noted. Mental Status Exam - Mental Status Exam Alert and Oriented to: Time, Place, Person Cognitive Function: Good Patient Appearance: Unkempt, Disheveled Mood: Nervous, Withdrawn Affect: Mood Congruent Patient Behavior: Fatigued, Guarded, Cooperative (superficially cooperative) Speech Pattern: Clear Voice Loudness: Normal Thought Process: Goal Oriented Thought Disorder: Not Present Hallucinations: Denies Suicidal Ideation: Denies Homicidal Ideation: Denies Insight/Judgement: Poor Sleep: Poorly, Difficulty falling asleep (wants ambien) Appetite: Good Muscle strength/Tone: Normal Gait/Station: Normal Psychiatric Findings - Problem List ([place] 1, 2,3) (1) Alcohol dependence with uncomplicated withdrawal Current Visit: Yes Status: Acute (2) Opioid dependence with withdrawal Current Visit: Yes Status: Acute (3) Cannabis dependence Current Visit: Yes Status: Acute (4) Cocaine dependence with withdrawal Current Visit: Yes Status: Acute (5) Nicotine dependence Current Visit: Yes Status: Acute (6) Substance induced mood disorder Current Visit: Yes Status: Acute (7) Insomnia Current Visit: Yes Status: Acute - Initial Treatment Plan Initial Treatment Plan: Psychoeducation.Detoxification.Ambien 10 mg po hs.Patient is made aware of parasomnias.He agrees with this careplan.Observation.
--- NOTE | 2016-10-15 20:17 | PN ---
S CIWA - CIWA Score Nausea/Vomitin Muscle Tremors: 4-Moderate,w/Arms Extend Anxiety: 2 Agitation: 3 Paroxysmal Sweats: 3 Orientation: 0-Oriented Tacttile Disturbances: 2-Mild Itch/Numbness/Burn Auditory Disturbances: 2-Mild Harshness/Frighten Visual Disturbances: 2-Mild Sensitivity Headache: 0-None Present CIWA-Ar Total Score: 20 BHS COWS - Scale Resting Pulse: 0= [place] 80 or Below Sweatin= Chills/Flushing Restless Observation: 1= Difficult to Sit Still Pupil Size: 0= Normal to Room Light Bone or Joint Aches: 2= Severe Diffuse Aches Runny Nose/ Eye Tearin= Runny Nose/Eyes GI Upset > 30mins: 2= Nausea/Diarrhea Tremor Observation of Outstretched Hands: 2= Slight Tremor Visible Yawning Observation: 1= 1-2x During Session Anxiety or Irritability: 2=Irritable/Anxious Goose Flesh Skin: 3=Piloerection COWS Score: 16 BHS Progress Note (SOAP) Subjective: Sweating, Interrupted Sleep, Body Aches, Anxious, Poor Appetite, constipation, Stomach Cramping. Objective: PT. A & OX 3, OBSERVED AMBULATING ON UNIT. NO ACUTE DISTRESS. 10/15/16 20:17 Vital Signs Temperature 97.6 F 10/15/16 18:55 Pulse Rate 64 10/15/16 18:55 Respiratory Rate 18 10/15/16 18:55 Blood Pressure 105/68 10/15/16 18:55 O2 Sat by Pulse Oximetry (%) Laboratory Tests 10/14/16 10/15/16 10/15/16 21:55 07:50 07:50 WBC 4.6 RBC 4.98 Hgb 14.4 Hct 43.3 MCV 87.0 MCH 28.9 MCHC 33.2 RDW 13.2 Plt Count 209 D MPV 8.2 Sodium 139 Potassium 4.3 Chloride 102 Carbon Dioxide 31 Anion Gap 6 L BUN 9 Creatinine 1.0 Creat Clearance w eGFR > 60 Random Glucose 82 Calcium 8.9 Total Bilirubin 0.8 AST 16 ALT 20 D Alkaline Phosphatase 60 Total Protein 7.1 Albumin 3.9 Urine Color Yellow Urine Appearance Clear Urine pH 5.0 Ur Specific [place] 1.025 Urine Protein Negative Urine Glucose (UA) Negative Urine Ketones Negative Urine Blood Negative Urine Nitrite Negative Urine Bilirubin Negative Urine Urobilinogen Negative Ur Leukocyte Esterase Negative LABS NOTED. RPR RESULT PENDING. 10/15/16 20:19 Assessment: 10/15/16 20:18 WITHDRAWAL SYMPTOMS. Plan: CONTINUE DETOX.
[2016-10-15] MEDS: THIAMINE HCL 100 MG TABLET (FP) PO SCH (22:15)
[2016-10-16] MEDS: diazePAM 5 MG TABLET PO PRN ×3 (05:15→17:22)
[2016-10-16] MEDS: diazePAM 5 MG TABLET PO SCH ×2 (09:32→22:28)
[2016-10-16] MEDS: PRENATAL VITAMINS W/ FOLIC ACID TABLET (FP) PO SCH (09:32)
[2016-10-16] MEDS: METHADONE HCL 5 MG TABLET (FOR DETOX USE ONLY) PO SCH (09:32)
--- NOTE | 2016-10-16 16:59 | PN ---
[facility] CIWA - CIWA Score Nausea/Vomitin Muscle Tremors: 4-Moderate,w/Arms Extend Anxiety: 4-Mod. Anxious/Guarded Agitation: 3 Paroxysmal Sweats: 3 Orientation: 0-Oriented Tacttile Disturbances: 1-Very Mild Itch/Numbness Auditory Disturbances: 0-None Visual Disturbances: 0-None Headache: 1-Very Mild CIWA-Ar Total Score: 19 S COWS - Scale Resting Pulse: 0= [place] 80 or Below Sweatin= Chills/Flushing Restless Observation: 3= Extraneous Movement Pupil Size: 0= Normal to Room Light Bone or Joint Aches: 2= Severe Diffuse Aches Runny Nose/ Eye Tearin= Runny Nose/Eyes GI Upset > 30mins: 2= Nausea/Diarrhea Tremor Observation of Outstretched Hands: 2= Slight Tremor Visible Yawning Observation: 1= 1-2x During Session Anxiety or Irritability: 2=Irritable/Anxious Goose Flesh Skin: 0=Smooth Skin COWS Score: 15 S Progress Note (SOAP) Subjective: Sweating, tremor, chills, interrupted sleep, anxious Objective: 10/16/16 16:57 Last Vital Signs Temp Pulse Resp BP Pulse Ox 97.0 F L 66 18 90/59 10/16/16 13:19 10/16/16 13:19 10/16/16 13:19 10/16/16 13:19 Hypotension noted: encouraged to drink lots of water Laboratory Tests 10/14/16 10/15/16 10/15/16 21:55 07:50 07:50 WBC 4.6 RBC 4.98 Hgb 14.4 Hct 43.3 MCV 87.0 MCH 28.9 MCHC 33.2 RDW 13.2 Plt Count 209 D MPV 8.2 Sodium 139 Potassium 4.3 Chloride 102 Carbon Dioxide 31 Anion Gap 6 L BUN 9 Creatinine 1.0 Creat Clearance w eGFR > 60 Random Glucose 82 Calcium 8.9 Total Bilirubin 0.8 AST 16 ALT 20 D Alkaline Phosphatase 60 Total Protein 7.1 Albumin 3.9 Urine Color Yellow Urine Appearance Clear Urine pH 5.0 Ur Specific [place] 1.025 Urine Protein Negative Urine Glucose (UA) Negative Urine Ketones Negative Urine Blood Negative Urine Nitrite Negative Urine Bilirubin Negative Urine Urobilinogen Negative Ur Leukocyte Esterase Negative RPR Titer 10/15/16 07:50 WBC RBC Hgb Hct MCV MCH MCHC RDW Plt Count MPV Sodium Potassium Chloride Carbon Dioxide Anion Gap BUN Creatinine Creat Clearance w eGFR Random Glucose Calcium Total Bilirubin AST ALT Alkaline Phosphatase Total Protein Albumin Urine Color Urine Appearance Urine pH Ur Specific [place] Urine Protein Urine Glucose (UA) Urine Ketones Urine Blood Urine Nitrite Urine Bilirubin Urine Urobilinogen Ur Leukocyte Esterase RPR Titer Nonreactive Labs noted Assessment: 10/16/16 16:57 Withdrawal symptoms Noted with hypotension Plan: Continue detox Hypotension: asymptomatic, encouraged to drink lots of water
[2016-10-16] MEDS: THIAMINE HCL 100 MG TABLET (FP) PO SCH (22:28)
[2016-10-16] MEDS: ZOLPIDEM TARTRATE 5 MG TABLET PO PRN (22:28)
[2016-10-17] MEDS: diazePAM 5 MG TABLET PO PRN ×3 (05:34→17:45)
[2016-10-17] MEDS: METHADONE HCL 5 MG TABLET (FOR DETOX USE ONLY) PO SCH (10:23)
[2016-10-17] MEDS: diazePAM 5 MG TABLET PO SCH ×2 (10:23→22:08)
[2016-10-17] MEDS: PRENATAL VITAMINS W/ FOLIC ACID TABLET (FP) PO SCH (10:23)
--- NOTE | 2016-10-17 11:16 | PN ---
BHS Progress Note (SOAP) Subjective: nausa, sweats, interrupted sleep, anxiety, tremors Objective: 10/17/16 11:14 Vital Signs - 8 hr 10/17/16 10/17/16 10/17/16 03:40 06:30 09:19 Temperature 97.1 F L 97.1 F L Pulse Rate 76 70 Respiratory 18 16 18 Rate Blood Pressure 95/54 102/56 Laboratory Tests 10/14/16 10/15/16 10/15/16 21:55 07:50 07:50 WBC 4.6 RBC 4.98 Hgb 14.4 Hct 43.3 MCV 87.0 MCH 28.9 MCHC 33.2 RDW 13.2 Plt Count 209 D MPV 8.2 Sodium 139 Potassium 4.3 Chloride 102 Carbon Dioxide 31 Anion Gap 6 L BUN 9 Creatinine 1.0 Creat Clearance w eGFR > 60 Random Glucose 82 Calcium 8.9 Total Bilirubin 0.8 AST 16 ALT 20 D Alkaline Phosphatase 60 Total Protein 7.1 Albumin 3.9 Urine Color Yellow Urine Appearance Clear Urine pH 5.0 Ur Specific [place] 1.025 Urine Protein Negative Urine Glucose (UA) Negative Urine Ketones Negative Urine Blood Negative Urine Nitrite Negative Urine Bilirubin Negative Urine Urobilinogen Negative Ur Leukocyte Esterase Negative RPR Titer 10/15/16 07:50 WBC RBC Hgb Hct MCV MCH MCHC RDW Plt Count MPV Sodium Potassium Chloride Carbon Dioxide Anion Gap BUN Creatinine Creat Clearance w eGFR Random Glucose Calcium Total Bilirubin AST ALT Alkaline Phosphatase Total Protein Albumin Urine Color Urine Appearance Urine pH Ur Specific [place] Urine Protein Urine Glucose (UA) Urine Ketones Urine Blood Urine Nitrite Urine Bilirubin Urine Urobilinogen Ur Leukocyte Esterase RPR Titer Nonreactive Assessment: 10/17/16 11:15 [email or web address] sx, constipation Plan: cont detox, colace, senna, dietary consult requested by patient
[2016-10-17] MEDS ORDERED: SENNOSIDES 8.6MG TABLET (FP) PO ONE (11:45)
--- NOTE | 2016-10-17 14:32 | PN ---
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 ROS: Unremarkable.Patient is always visible on the unit.Active,well-controlled, sociable and ambulatory.No somatic complaints.Cognition is intact. Current Medications: Active Medications Generic Name Dose Route Start Last Admin Trade Name Freq PRN Reason Stop Dose Admin Acetaminophen 650 mg 10/14/16 21:04 Tylenol - PO Q4H PRN FEVER OR PAIN Al Hydroxide/Mg Hydroxide 30 ml 10/14/16 21:04 Mylanta Oral Suspension - PO Q6H PRN DYSPEPSIA Diazepam 10 mg 10/14/16 21:04 10/17/16 11:42 Valium - PO 10/17/16 21:04 10 mg Q4H PRN Administration WITHDRAWAL(CONT SUBST) Diazepam 5 mg 10/16/16 10:00 10/17/16 10:23 Valium - PO 10/17/16 22:01 5 mg BID CARITO Administration Diazepam 5 mg 10/18/16 10:00 Valium - PO 10/18/16 10:01 DAILY CARITO Diphenhydramine HCl 50 mg 10/14/16 21:04 Benadryl - PO HSMR1 PRN INSOMNIA Docusate Sodium 300 mg 10/17/16 22:00 Colace - PO HS CARITO Eucalyptus/Menthol/Phenol/Sorbitol 1 each 10/14/16 21:04 Cepastat Lozenge - MM Q4H PRN SORE THROAT Fluoxetine HCl 20 mg 10/18/16 10:00 Prozac - PO DAILY CARITO Guaifenesin 10 ml 10/14/16 21:04 Robitussin Dm - PO Q6H PRN COUGH Hydroxyzine Pamoate 50 mg 10/14/16 21:04 Vistaril - PO Q4H PRN AGITATION Ibuprofen 400 mg 10/14/16 21:04 Motrin - PO Q6H PRN SEVERE PAIN Loperamide HCl 4 mg 10/14/16 21:04 Imodium - PO Q6H PRN DIARRHEA Magnesium Citrate 300 ml 10/14/16 21:04 Citroma - PO Q48H PRN CONSTIPATION Magnesium Hydroxide 30 ml 10/14/16 21:04 Milk Of Magnesia - PO DAILY PRN CONSTIPATION Methadone HCl 10 mg 10/18/16 10:00 Dolophine - PO 10/18/16 10:01 DAILY CARITO Methadone HCl 5 mg 10/19/16 06:00 Dolophine - PO 10/19/16 06:01 DAILY@0600 CARITO Multivit/Folic Acid/Iron 1 tab 10/15/16 10:00 10/17/16 10:23 Vitamins (Sjr) - PO 1 tab DAILY CARITO Administration Pseudoephedrine/Triprolidine 1 combo 10/14/16 21:04 Actifed - PO TID PRN NASAL CONGESTION Thiamine HCl 100 mg 10/14/16 22:00 10/16/16 22:28 Vitamin B1 - PO 100 mg HS CARITO Administration Zolpidem Tartrate 10 mg 10/15/16 23:13 10/16/16 22:28 Ambien - PO 10 mg HS PRN Administration INSOMNIA Medication(s) Change(s): Prozac 20 mg po daily.Ordered.Side effects/benefits discussed with the patient.Made aware of potential for sexual dysfunction and suicidal ideation.Mr Martinez reports history of good tolerability.He consents ( verbally) to resume prozac. Current Side Effect: No Lab tests ordered: No Lab tests reviewed: Yes Provider note:: Met with patient,at his request,to discuss initiation of treament with an antidepressant.Patient expresses his preference for fluoxetine due to a past history of good response to that drug.Side effects/benefits reviewed with patient.Mr Martinez is educated,in this session,about the importance of adherence to OPD care and the virtues of sobriety.He is also encouraged to consider vocational training.Patient indicates that he plans to enroll in computer training classes after his discharge.Doing well in this hospital course.Mr Martinez is at his baseline. Total face to face time:: 30 Mental Status Exam - Mental Status Exam Alert and Oriented to: Time, Place, Person Cognitive Function: Good Patient Appearance: Well Groomed Mood: Hopeful, Euthymic Affect: Appropriate, Normal Range Patient Behavior: Appropriate, Cooperative Speech Pattern: Clear Voice Loudness: Normal Thought Process: Goal Oriented Thought Disorder: Not Present Hallucinations: Denies Suicidal Ideation: Denies Homicidal Ideation: Denies Insight/Judgement: Fair Sleep: Well Appetite: Good Muscle strength/Tone: Normal Gait/Station: Normal Psychiatric Treatment Plan - Problem List (1) Alcohol dependence with uncomplicated withdrawal Current Visit: Yes (2) Opioid dependence with withdrawal Current Visit: Yes (3) Cannabis dependence Current Visit: Yes (4) Cocaine dependence with withdrawal Current Visit: Yes (5) Nicotine dependence Current Visit: Yes (6) Substance induced mood disorder Current Visit: Yes (7) Insomnia Current Visit: Yes
[2016-10-17] MEDS: THIAMINE HCL 100 MG TABLET (FP) PO SCH (22:08)
[2016-10-17] MEDS: DOCUSATE SODIUM 100 MG CAPSULE (FP) PO SCH (22:08)
[2016-10-17] MEDS: ZOLPIDEM TARTRATE 5 MG TABLET PO PRN (22:08)
[2016-10-18] MEDS ORDERED: METHADONE HCL 10 MG TABLET (FOR DETOX USE ONLY) PO SCH (10:00)
[2016-10-18] MEDS ORDERED: diazePAM 5 MG TABLET PO SCH (10:00)
[2016-10-18] MEDS: FLUoxetine HCL 20 MG CAPSULE (FP) PO SCH (10:07)
[2016-10-18] MEDS: PRENATAL VITAMINS W/ FOLIC ACID TABLET (FP) PO SCH (10:07)
--- NOTE | 2016-10-18 12:11 | PN ---
BHS Progress Note (SOAP) Subjective: Interrupted sleep, Anxious, Constipation. Objective: PT. A & O X 3, OBSERVED AMBULATING ON UNIT. NO ACUTE DISTRESS. 10/18/16 12:09 Vital Signs Temperature 98.1 F 10/18/16 09:22 Pulse Rate 51 L 10/18/16 09:22 Respiratory Rate 18 10/18/16 09:22 Blood Pressure 96/57 10/18/16 09:22 O2 Sat by Pulse Oximetry (%) Laboratory Tests 10/14/16 10/15/16 10/15/16 21:55 07:50 07:50 WBC 4.6 RBC 4.98 Hgb 14.4 Hct 43.3 MCV 87.0 MCH 28.9 MCHC 33.2 RDW 13.2 Plt Count 209 D MPV 8.2 Sodium 139 Potassium 4.3 Chloride 102 Carbon Dioxide 31 Anion Gap 6 L BUN 9 Creatinine 1.0 Creat Clearance w eGFR > 60 Random Glucose 82 Calcium 8.9 Total Bilirubin 0.8 AST 16 ALT 20 D Alkaline Phosphatase 60 Total Protein 7.1 Albumin 3.9 Urine Color Yellow Urine Appearance Clear Urine pH 5.0 Ur Specific [place] 1.025 Urine Protein Negative Urine Glucose (UA) Negative Urine Ketones Negative Urine Blood Negative Urine Nitrite Negative Urine Bilirubin Negative Urine Urobilinogen Negative Ur Leukocyte Esterase Negative RPR Titer 10/15/16 07:50 WBC RBC Hgb Hct MCV MCH MCHC RDW Plt Count MPV Sodium Potassium Chloride Carbon Dioxide Anion Gap BUN Creatinine Creat Clearance w eGFR Random Glucose Calcium Total Bilirubin AST ALT Alkaline Phosphatase Total Protein Albumin Urine Color Urine Appearance Urine pH Ur Specific [place] Urine Protein Urine Glucose (UA) Urine Ketones Urine Blood Urine Nitrite Urine Bilirubin Urine Urobilinogen Ur Leukocyte Esterase RPR Titer Nonreactive LABS NOTED. Assessment: 10/18/16 12:10 WITHDRAWAL SYMPTOMS. Plan: CONTINUE DETOX. INCREASE PO FLUID INTAKE.
[2016-10-18] MEDS: DOCUSATE SODIUM 100 MG CAPSULE (FP) PO SCH (21:42)
[2016-10-18] MEDS: THIAMINE HCL 100 MG TABLET (FP) PO SCH (21:42)
[2016-10-18] MEDS: ZOLPIDEM TARTRATE 5 MG TABLET PO PRN (21:42)
[2016-10-19] MEDS ORDERED: METHADONE HCL 5 MG TABLET (FOR DETOX USE ONLY) PO SCH (06:00)
[2016-10-19 10:04] VITALS: BP 102/57; PULSE 64; TEMP 96.3
[2016-10-19] MEDS: PRENATAL VITAMINS W/ FOLIC ACID TABLET (FP) PO SCH (10:13)
[2016-10-19] MEDS: FLUoxetine HCL 20 MG CAPSULE (FP) PO SCH (10:13)
--- NOTE | 2016-10-19 12:32 | HP ---
[facility] Assess/Revision - Admission History Admitted to Rehab from: [facility] [place] - Vital signs Vital Signs: Vital Signs Period Temp Pulse Resp BP Sys/Cruz Pulse Ox Last 24 Hr 96.3 F-98.1 F 62-79 16-18 96-108/54-65 - Findings Detox History & Physical reviewed: Yes Concur with findings: Yes Comments/Additional Findings: PRIOR TO DISCHARGE FROM DETOX UNIT. PATIENT'S MEDICAL / MEDICATION HISTORY WERE REVIEWED. PATIENT WAS DISCHARGED FROM DETOX UNIT TO BE TAKEN OVER TO REHAB UNIT IN STABLE MEDICAL CONDITION.
--- NOTE | 2016-10-19 12:35 | DS ---
[facility] Detox Discharge Summary Admission Date: 10/14/16 Discharge Date: 10/19/16 - History Present History: Alcohol Dependence, Cannabis Dependence, Cocaine Dependence, Opioid Dependence Additional Comments: PATIENT GOING TO [facility] FOR AFTERCARE. PATIENT WAS DISCHARGED FROM DETOX UNIT IN STABLE MEDICAL CONDITION. Pertinent Past History: Depression, Insomnia. - Physical Exam Results Vital Signs: Vital Signs Temperature 96.3 F L 10/19/16 10:04 Pulse Rate 64 10/19/16 10:04 Respiratory Rate 18 10/19/16 10:04 Blood Pressure 102/57 10/19/16 10:04 O2 Sat by Pulse Oximetry (%) Pertinent Admission Physical Exam Findings: WITHDRAWAL SYMPTOMS. Laboratory Tests 10/14/16 10/15/16 10/15/16 21:55 07:50 07:50 WBC 4.6 RBC 4.98 Hgb 14.4 Hct 43.3 MCV 87.0 MCH 28.9 MCHC 33.2 RDW 13.2 Plt Count 209 D MPV 8.2 Sodium 139 Potassium 4.3 Chloride 102 Carbon Dioxide 31 Anion Gap 6 L BUN 9 Creatinine 1.0 Creat Clearance w eGFR > 60 Random Glucose 82 Calcium 8.9 Total Bilirubin 0.8 AST 16 ALT 20 D Alkaline Phosphatase 60 Total Protein 7.1 Albumin 3.9 Urine Color Yellow Urine Appearance Clear Urine pH 5.0 Ur Specific [place] 1.025 Urine Protein Negative Urine Glucose (UA) Negative Urine Ketones Negative Urine Blood Negative Urine Nitrite Negative Urine Bilirubin Negative Urine Urobilinogen Negative Ur Leukocyte Esterase Negative RPR Titer 10/15/16 07:50 WBC RBC Hgb Hct MCV MCH MCHC RDW Plt Count MPV Sodium Potassium Chloride Carbon Dioxide Anion Gap BUN Creatinine Creat Clearance w eGFR Random Glucose Calcium Total Bilirubin AST ALT Alkaline Phosphatase Total Protein Albumin Urine Color Urine Appearance Urine pH Ur Specific [place] Urine Protein Urine Glucose (UA) Urine Ketones Urine Blood Urine Nitrite Urine Bilirubin Urine Urobilinogen Ur Leukocyte Esterase RPR Titer Nonreactive LABS NOTED. - Treatment Hospital Course: Detox Protocol Followed, Detoxed Safely, Responded well, Discharged Condition Good, Rehab Referral Accepted Patient has Accepted a Rehab Referral to: [facility]. - Medication Discharge Medications: Ambulatory Orders Fluoxetine HCl [Prozac] 20 mg PO DAILY #30 capsule 10/19/16 - Diagnosis (1) Alcohol dependence with uncomplicated withdrawal Current Visit: Yes Status: Acute (2) Cannabis dependence Current Visit: Yes Status: Acute (3) Cocaine dependence with withdrawal Current Visit: Yes Status: Acute (4) Insomnia Current Visit: Yes Status: Acute Qualifiers: Insomnia type: unspecified Qualified Code(s): G47.00 - Insomnia, unspecified (5) Nicotine dependence Current Visit: Yes Status: Chronic Qualifiers: Nicotine product type: cigarettes Substance use status: uncomplicated Qualified Code(s): F17.210 - Nicotine dependence, cigarettes, uncomplicated (6) Opioid dependence with withdrawal Current Visit: Yes Status: Acute (7) Substance induced mood disorder Current Visit: Yes Status: Acute - AMA Did Patient Leave Against Medical Advice: No
== END 2016-10-19 12:30 | disposition other institution (70) | DRG 773 ==
LOC: YASAS 10:41 → Y3N 17:03
PROVIDERS: ADMIT Internal Medicine Addiction Medicine; ATTEND Internal Medicine Addiction Medicine
PROC: HZ2ZZZZ Detoxification Services for Substance Abuse Treatment (ICD-10-PCS; principal; 2016-10-14)
DX: F11.23 Opioid dependence with withdrawal (principal); F10.230 Alcohol dependence with withdrawal, uncomplicated; F14.23 Cocaine dependence with withdrawal; F12.20 Cannabis dependence, uncomplicated; F17.210 Nicotine dependence, cigarettes, uncomplicated; F19.24 Other psychoactive substance dependence with psychoactive substance-induced mood disorder; G47.00 Insomnia, unspecified; Z59.0 Homelessness
CPT/HCPCS: 36415; 80053; 81003; 85027; 86593; 93005; 93010

== ENCOUNTER 2016-10-19 12:36 | Inpatient (IN) | payer OTHER ==
[2016-10-19] MEDS ORDERED: IBUPROFEN 400 MG TABLET (FP) PO PRN (12:54)
[2016-10-19] MEDS ORDERED: LOPERAMIDE HCL 2 MG CAPSULE PO PRN (12:54)
[2016-10-19] MEDS ORDERED: NICOTINE POLACRILEX 2 MG GUM BUC PRN (12:54)
[2016-10-19] MEDS ORDERED: hydrOXYzine PAMOATE 50 MG CAPSULE (FP) PO PRN (12:54)
[2016-10-19] MEDS ORDERED: MENTHOL/PHENOL 1 EACH UD MM PRN (12:54)
[2016-10-19] MEDS ORDERED: MAGNESIUM HYDROX 2400MG/30ML ORAL SUSPENSION 30 ML CUP PO PRN (12:54)
[2016-10-19] MEDS ORDERED: diphenhydrAMINE HCL 50 MG CAPSULE PO PRN (12:54)
[2016-10-19] MEDS ORDERED: guaiFENesin/D-METHORPHAN HB 10 ML UNIT-DOSE CUPS PO PRN (12:54)
[2016-10-19] MEDS ORDERED: ACETAMINOPHEN 325 MG TABLET (FP) PO PRN (12:54)
[2016-10-19] MEDS ORDERED: MAG HYDROX/AL HYDROX/SIMETH 30 ML UNIT-DOSE CUP PO PRN (12:54)
[2016-10-19] MEDS ORDERED: MAGNESIUM CITRATE 300 ML BOTTLE PO PRN (12:54)
[2016-10-19] MEDS ORDERED: P-EPHED 60MG/TRIPROLIDI 2.5MG TABLET PO PRN (12:54)
--- NOTE | 2016-10-19 16:41 | HP ---
[facility] Re[facility] Assess/Revision - Admission History Admitted to Rehab from: [facility] Date of Admission to Rehab: 10/19/16 - Vital signs Vital Signs: Vital Signs Period Temp Pulse Resp BP Sys/Cruz Pulse Ox Last 24 Hr 97.9 F 62 20 116/71 - Findings Detox History & Physical reviewed: Yes Concur with findings: Yes Comments/Additional Findings: transferred from detox to rehab admission as per protocol
[2016-10-19] MEDS: THIAMINE HCL 100 MG TABLET (FP) PO SCH (21:55)
[2016-10-20] MEDS: NICOTINE 14 MG/24 HOURS TOPICAL PATCH TD SCH (10:32)
[2016-10-20] MEDS: FLUoxetine HCL 20 MG CAPSULE (FP) PO SCH (10:33)
[2016-10-20] MEDS: PRENATAL VITAMINS W/ FOLIC ACID TABLET (FP) PO SCH (10:33)
--- NOTE | 2016-10-20 14:43 | HP ---
Psychiatrist Admission - Data Date of interview: 10/20/16 Admission source: 3N Identifying data: This is the first 5N inpatient rehabilitation admission for this 21 year old male who is single without children, residing in the residential and supported on food stamps. Medical History: good physical health Psychiatric History: Patient reports he was treated for short period of time at [facility] for anxiety with Prozac and Klonopin, states never took medication for long period of time, thinks he had OCD as a child, was washing his hands, reaarniging things, had a very high anxiety at school when he needed to do presentation in class. At age 16 while in rehab at [facility] for 28 days , he wasput on Luvox, after he his discharge from the [facility], he saw a private psychiatrist in [place], [place] for 4 months and was continued on Luvox and prescribed Klonopin as well. Seen by while in detox and restarted Prozac. Physical/Sexual Abuse/Trauma History: Denies history of abuse. Vital Signs: Vital Signs - 24 hr 10/19/16 10/20/16 10/20/16 21:33 00:30 03:30 Temperature Pulse Rate 89 Respiratory 16 16 Rate Blood Pressure 119/82 10/20/16 07:04 Temperature 98.0 F Pulse Rate 55 L Respiratory 16 Rate Blood Pressure 105/54 Allergies/Adverse Reactions: Allergies Allergy/AdvReac Type Severity Reaction Status Date / Time No Known Allergies Allergy Verified 10/14/16 16:01 Date of last physical exam: 10/14/16 Concur with the findings of this exam: Yes - Substance Abuse/Tx History Hx Alcohol Use: Yes Hx Substance Use: Yes Substance Use Type: Cocaine (daily use), Heroin (1 bags daily injecting ) Hx Substance Use Treatment: Yes ([facility]) - Admission Criteria Previous failed treatment: Yes Poor recovery environment: Yes Comorbidities: Yes Lacks judgement: Yes Mental Status Exam - Mental Status Exam Alert and Oriented to: Time, Place, Person Cognitive Function: Good Patient Appearance: Well Groomed Mood: Anxious Affect: Appropriate, Mood Congruent Patient Behavior: Appropriate, Cooperative Speech Pattern: Clear, Appropriate Voice Loudness: Normal Thought Process: Intact, Goal Oriented Thought Disorder: Not Present Hallucinations: Denies Suicidal Ideation: Denies Homicidal Ideation: Denies Insight/Judgement: Fair Sleep: Fair Appetite: Fair Muscle strength/Tone: Normal Gait/Station: Normal Psychiatric Findings - Problem List ([place] 1, 2,3) (1) Opioid dependence Current Visit: Yes Status: Acute (2) Cocaine dependence Current Visit: Yes Status: Acute (3) Alcohol dependence Current Visit: Yes Status: Acute (4) NETO (generalized anxiety disorder) Current Visit: Yes Status: Acute - Initial Treatment Plan Initial Treatment Plan: will continue medication, monitor progress as needed.
[2016-10-20] MEDS: THIAMINE HCL 100 MG TABLET (FP) PO SCH (21:17)
[2016-10-21] MEDS: FLUoxetine HCL 20 MG CAPSULE (FP) PO SCH (10:11)
[2016-10-21] MEDS: NICOTINE 14 MG/24 HOURS TOPICAL PATCH TD SCH (10:11)
[2016-10-21] MEDS: PRENATAL VITAMINS W/ FOLIC ACID TABLET (FP) PO SCH (10:11)
[2016-10-21] MEDS: THIAMINE HCL 100 MG TABLET (FP) PO SCH (21:29)
[2016-10-22] MEDS: PRENATAL VITAMINS W/ FOLIC ACID TABLET (FP) PO SCH (10:09)
[2016-10-22] MEDS: FLUoxetine HCL 20 MG CAPSULE (FP) PO SCH (10:09)
[2016-10-22] MEDS: NICOTINE 14 MG/24 HOURS TOPICAL PATCH TD SCH (10:09)
[2016-10-22] MEDS: THIAMINE HCL 100 MG TABLET (FP) PO SCH (22:11)
[2016-10-23] MEDS: PRENATAL VITAMINS W/ FOLIC ACID TABLET (FP) PO SCH (10:38)
[2016-10-23] MEDS: FLUoxetine HCL 20 MG CAPSULE (FP) PO SCH (10:38)
[2016-10-23] MEDS: NICOTINE 14 MG/24 HOURS TOPICAL PATCH TD SCH (10:38)
[2016-10-23] MEDS: THIAMINE HCL 100 MG TABLET (FP) PO SCH (21:28)
[2016-10-24] MEDS: FLUoxetine HCL 20 MG CAPSULE (FP) PO SCH (10:11)
[2016-10-24] MEDS: PRENATAL VITAMINS W/ FOLIC ACID TABLET (FP) PO SCH (10:11)
[2016-10-24] MEDS: NICOTINE 14 MG/24 HOURS TOPICAL PATCH TD SCH (10:11)
[2016-10-24] MEDS: THIAMINE HCL 100 MG TABLET (FP) PO SCH (21:28)
[2016-10-25] MEDS: FLUoxetine HCL 20 MG CAPSULE (FP) PO SCH (10:20)
[2016-10-25] MEDS: NICOTINE 14 MG/24 HOURS TOPICAL PATCH TD SCH (10:20)
[2016-10-25] MEDS: PRENATAL VITAMINS W/ FOLIC ACID TABLET (FP) PO SCH (10:20)
[2016-10-25] MEDS: THIAMINE HCL 100 MG TABLET (FP) PO SCH (21:26)
[2016-10-26 06:46] VITALS: BP 121/69; PULSE 59; TEMP 97.9
[2016-10-26] MEDS: FLUoxetine HCL 20 MG CAPSULE (FP) PO SCH (10:21)
[2016-10-26] MEDS: PRENATAL VITAMINS W/ FOLIC ACID TABLET (FP) PO SCH (10:21)
[2016-10-26] MEDS: NICOTINE 14 MG/24 HOURS TOPICAL PATCH TD SCH (10:21)
--- NOTE | 2016-10-26 11:38 | PN ---
Psychiatric Progress Note Vital Signs: Vital Signs Period Temp Pulse Resp BP Sys/Cruz Pulse Ox Last 24 Hr 97.9 F 59 16-16 121/69 Date of Session: 10/26/16 Chief Complaint:: discharge visit HPI: Patient addressed alcohol, cocaine, opioid dependence comorbid NETO. ROS: WNL Current Medications: Active Medications Generic Name Dose Route Start Last Admin Trade Name Freq PRN Reason Stop Dose Admin Acetaminophen 650 mg 10/19/16 12:54 Tylenol - PO Q4H PRN FEVER OR PAIN Al Hydroxide/Mg Hydroxide 30 ml 10/19/16 12:54 Mylanta Oral Suspension - PO Q6H PRN DYSPEPSIA Diphenhydramine HCl 50 mg 10/19/16 12:54 Benadryl - PO HSMR1 PRN FOR ITCHING Eucalyptus/Menthol/Phenol/Sorbitol 1 each 10/19/16 12:54 Cepastat Lozenge - MM Q4H PRN SORE THROAT Fluoxetine HCl 20 mg 10/20/16 10:00 10/26/16 10:21 Prozac - PO 20 mg DAILY CARITO Administration Guaifenesin 10 ml 10/19/16 12:54 Robitussin Dm - PO Q6H PRN COUGH Hydroxyzine Pamoate 50 mg 10/19/16 12:54 Vistaril - PO Q4H PRN AGITATION Ibuprofen 400 mg 10/19/16 12:54 Motrin - PO Q6H PRN PAIN Loperamide HCl 4 mg 10/19/16 12:54 Imodium - PO Q6H PRN DIARRHEA Magnesium Hydroxide 30 ml 10/19/16 12:54 Milk Of Magnesia - PO DAILY PRN CONSTIPATION Nicotine 14 mg 10/20/16 10:00 10/26/16 10:21 Nicoderm Patch - TD Not Given DAILY CARITO Nicotine Polacrilex 2 mg 10/19/16 12:54 Nicorette Gum - BUC Q2H PRN NICOTINE REPLACEMENT RX Multivit/Folic Acid/Iron 1 tab 10/20/16 10:00 10/26/16 10:21 Vitamins (Sjr) - PO 1 tab DAILY CARITO Administration Pseudoephedrine/Triprolidine 1 combo 10/19/16 12:54 Actifed - PO TID PRN NASAL CONGESTION Thiamine HCl 100 mg 10/19/16 22:00 10/25/16 21:26 Vitamin B1 - PO 100 mg HS CARITO Administration Current Side Effect: No Lab tests ordered: No Lab tests reviewed: Yes Provider note:: Patient has completed today his teratment and met his identified goals, will continue to address his issues at [facility] term treatment program.He gained insights into importnace continue maintain abstinence, understands the negative consequence of his addiction. Prozac well tolerated, patient reports he feels much bettr, less anxious and more energetic, no side-effects reported, scripts provided. Patient is stable for discharge. Total face to face time:: 20 Mental Status Exam - Mental Status Exam Alert and Oriented to: Time, Place, Person Cognitive Function: Good Patient Appearance: Well Groomed Mood: Hopeful Affect: Appropriate, Mood Congruent Patient Behavior: Appropriate, Cooperative Speech Pattern: Clear, Appropriate Voice Loudness: Normal Thought Process: Intact, Goal Oriented Thought Disorder: Not Present Hallucinations: Denies Suicidal Ideation: Denies Homicidal Ideation: Denies Insight/Judgement: Fair Sleep: Fair Appetite: Good Muscle strength/Tone: Normal Gait/Station: Normal
== END 2016-10-26 11:45 | disposition home or self-care (01) | DRG 772 ==
LOC: YASAS 12:36 → Y5N 12:38
PROVIDERS: ADMIT Psychiatry & Neurology Psychiatry; ATTEND Psychiatry & Neurology Psychiatry
PROC: HZ42ZZZ Group Counseling for Substance Abuse Treatment, Cognitive-Behavioral (ICD-10-PCS; principal; 2016-10-19)
DX: F11.20 Opioid dependence, uncomplicated (principal); F10.230 Alcohol dependence with withdrawal, uncomplicated; F14.20 Cocaine dependence, uncomplicated; F41.1 Generalized anxiety disorder

== ENCOUNTER 2017-08-08 10:43 | Inpatient (IN) | payer OTHER ==
[2017-08-08 11:36] VITALS: BMI 21.5
--- NOTE | 2017-08-08 12:07 | HP ---
COWS - Scale Resting Pulse: 0= [place] 80 or Below Sweatin= Chills/Flushing Restless Observation: 3= Extraneous Movement Pupil Size: 0= Normal to Room Light Bone or Joint Aches: 4=Acute Joint/Muscle Pain Runny Nose/ Eye Tearin= Runny Nose/Eyes GI Upset > 30mins: 0= None (constipation) Tremor Observation: 1= Tremor [place], Not Seen Yawning Observation: 0= None Anxiety or Irritability: 2=Irritable/Anxious Goose Flesh Skin: 3=Piloerection COWS Score: [address] [facility] Chief Complaint: HEROIN WITHDRAWAL SX Allergies/Adverse Reactions: Allergies Allergy/AdvReac Type Severity Reaction Status Date / Time No Known Allergies Allergy Verified 08/08/17 11:20 History of Present Illness: 22 Y/O MALE WITH A HX OF HEROIN,CRACK AND XANAX DEPENDENCE SEEKING DETOX TX. PT HAS PREVIOUS DETOX TREATMENT IN THIS FACILITY.PT REPORTS ALMOST ONE YEAR PERIOD OF SOBRIETY. Exam Limitations: No Limitations - Ebola screening Have you traveled outside of the country in the last 21 days: No Have you had contact with anyone from an Ebola affected area: No Have you been sick,other than usual withdrawal symptoms: No Do you have a fever: No - Review of Systems Constitutional: Chills, Loss of Appetite, Night Sweats, Changes in sleep, Unintentional Wgt. Loss EENT: reports: Tearing, Nose Congestion Respiratory: reports: No Symptoms reported Cardiac: reports: Lightheadedness, Palpitations (DUE TO ANXIETY), Chest Tightness (DUE TO ANXIETY) GI: reports: Constipated (OIC), Diarrhea, Nausea, Poor Appetite, Poor Fluid Intake, Vomiting, Abdominal cramping (DUE TO WITHDRAWAL SX) : reports: Dysuria Musculoskeletal: reports: Back Pain, Joint Pain, Muscle Pain Integumentary: reports: Bruising (ON IVD INJ SITE) Neuro: reports: Headache, Tremors, Dizziness Endocrine: reports: No Symptoms Reported Hematology: reports: No Symptoms Reported Psychiatric: reports: Orientated x3, Anxious Other Systems: Reviewed and Negative Patient History - Patient Medical History Hx Anemia: No Hx Asthma: No Hx Chronic Obstructive Pulmonary Disease (COPD): No Hx Cancer: No Hx Cardiac Disorders: No Hx Congestive Heart Failure: No Hx Hypertension: No Hx Hypercholesterolemia: No Hx Pacemaker: No HX Cerebrovascular Accident: No Hx Seizures: No Hx Dementia: No Hx Diabetes: No Hx Gastrointestinal Disorders: No Hx Liver Disease: No Hx Genitourinary Disorders: No Hx Sexually Transmitted Disorders: No Hx Renal Disease (ESRD): No Hx Thyroid Disease: No Hx Human Immunodeficiency Virus (HIV): No (last 07/23 negative hx) Hx Hepatitis C: No Hx Depression: Yes (No meds; Requests eval) Hx Suicide Attempt: No (Denies S/I) Hx Bipolar Disorder: No Hx Schizophrenia: No - Patient Surgical History Past Surgical History: No Hx Neurologic Surgery: No Hx Cataract Extraction: No Hx Cardiac Surgery: No Hx Lung Surgery: No Hx Breast Surgery: No Hx Breast Biopsy: No Hx Abdominal Surgery: No Hx Appendectomy: No Hx Cholecystectomy: No Hx Genitourinary Surgery: No Hx Orthopedic Surgery: No Anesthesia Reaction: No - PPD History Previous Implant?: Yes Documented Results: Negative w/proof Implanted On Prior R Admission?: Yes Date: 08/25/16 Results: 0 mm PPD to be Administered?: No - Reproductive History Patient is a Female of Child Bearing Age (11 -55 yrs old): No (MALE) - Smoking Cessation Smoking history: Current every day smoker Have you smoked in the past 12 months: Yes Aproximately how many cigarettes per day: 10 Cigars Per Day: 0 Hx Chewing Tobacco Use: No Initiated information on smoking cessation: Yes 'Breaking Loose' booklet given: 08/08/17 - Substance & Tx. History Hx Alcohol Use: No (DENIES) Hx Substance Use: Yes (HEROIN/XANAX/COCAINE) Substance Use Type: Cocaine, Heroin, Tranquilizers Hx Substance Use Treatment: Yes (LAST TX AT [facility]) - Substances Abused Heroin Route: Injection Frequency: Daily Amount used: 20 bags Age of first use: 17 Date of Last Use: 08/07/17 Crack Route: Smoking Frequency: Daily Amount used: $50 Age of first use: 17 Date of Last Use: 08/07/17 Alprazolam (Xanax) Route: Oral Frequency: 3-6 times per week Amount used: 2mg Age of first use: 17 Date of Last Use: 08/04/17 Family Disease History - Family Disease History Family Disease History: Other: Mother (HTN) Admission Physical Exam BHS - Vital Signs Vital Signs: Vital Signs - 24 hr 08/08/17 11:30 Temperature 98.7 F Pulse Rate 65 Respiratory 20 Rate Blood Pressure 118/71 - Physical General Appearance: Yes: Nourished, Mild Distress, Irritable, Anxious HEENTM: Yes: EOMI, Hearing grossly Normal, Normocephalic, Normal Voice, STEPHANIE, Pharynx Normal Respiratory: Yes: Chest Non-Tender, Lungs Clear, Normal Breath Sounds, No Respiratory Distress Neck: Yes: No masses,lesions,Nodules, Supple, Trachea in good position Breast: Yes: Breast Exam Deferred Cardiology: Yes: Regular Rhythm, Regular Rate, S1, S2 Abdominal: Yes: Normal Bowel Sounds, Non Tender, Flat, Soft Genitourinary: Yes: Other (N/C) Back: Yes: Within Normal Limits Musculoskeletal: Yes: full range of Motion, Gait Steady Extremities: Yes: Normal Range of Motion, Non-Tender Neurological: Yes: pattern designer II-XII NML intact, Fully Oriented, Alert, Motor Strength 5/5 Integumentary: Yes: Normal Color, Dry, Warm, Track Christian (RIGHT ELBOW WITH RECENT IVD INJECTION SITE--SLIGHT REDNESS. NO ABCESS NOTED.) Lymphatic: Yes: Within Normal Limits - Diagnostic (1) Cocaine dependence with withdrawal Current Visit: Yes Status: Acute (2) Nicotine dependence Current Visit: Yes Status: Acute Qualifiers: Nicotine product type: cigarettes Substance use status: in withdrawal Qualified Code(s): F17.213 - Nicotine dependence, cigarettes, with withdrawal (3) Opioid dependence with withdrawal Current Visit: Yes Status: Acute (4) IVDU (intravenous drug user) Current Visit: Yes Status: Acute Cleared for Admission [facility] - Detox or Rehab [facility] Level of Care: Medically Managed Detox Regimen/Protocol: Methadone [facility] Breath Alcohol Content Breath Alcohol Content: 0 Urine Drug Screen - Results Drug Screen Negative: No Urine Drug Screen Results: JULI-Cocaine, OPI-Opiates
[2017-08-08] MEDS ORDERED: MAG HYDROX/AL HYDROX/SIMETH 30 ML UNIT-DOSE CUP PO PRN (12:21)
[2017-08-08] MEDS ORDERED: guaiFENesin/D-METHORPHAN HB 10 ML UNIT-DOSE CUPS PO PRN (12:21)
[2017-08-08] MEDS ORDERED: ACETAMINOPHEN 325 MG TABLET (FP) PO PRN (12:21)
[2017-08-08] MEDS ORDERED: LOPERAMIDE HCL 2 MG CAPSULE PO PRN (12:21)
[2017-08-08] MEDS ORDERED: MENTHOL/PHENOL 1 EACH UD MM PRN (12:21)
[2017-08-08] MEDS ORDERED: P-EPHED 60MG/TRIPROLIDI 2.5MG TABLET PO PRN (12:21)
[2017-08-08] MEDS ORDERED: NICOTINE POLACRILEX 2 MG GUM BC PRN (12:21)
[2017-08-08] MEDS ORDERED: MAGNESIUM CITRATE 300 ML BOTTLE PO PRN (12:21)
[2017-08-08] MEDS ORDERED: MAGNESIUM HYDROX 2400MG/30ML ORAL SUSPENSION 30 ML CUP PO PRN (12:21)
[2017-08-08] MEDS ORDERED: METHADONE HCL 10 MG TABLET (FOR DETOX USE ONLY) PO ONE ×2 (13:15→23:00)
[2017-08-08] MEDS: BACITRACIN 0.9 GM PACKET TP SCH ×2 (14:22→22:16)
[2017-08-08] MEDS: NICOTINE 14 MG/24 HOURS TOPICAL PATCH TD SCH (14:22)
[2017-08-08] MEDS: diazePAM 5 MG TABLET PO PRN ×3 (14:23→23:38)
[2017-08-08] MEDS: IBUPROFEN 400 MG TABLET (FP) PO PRN (14:28)
[2017-08-08 18:44] LABS: URINE APPEARANCE TURBID; URINE BILIRUBIN NEGATIVE (<2.0 mg/dL); URINE COLOR YELLOW; URINE GLUCOSE (UA) NEGATIVE (NEGATIVE); URINE KETONE NEGATIVE (NEGATIVE); URINE LEUK ESTERASE NEGATIVE (NEGATIVE); URINE NITRITE NEGATIVE (NEGATIVE)
[2017-08-08 18:58] LABS: URINE PROTEIN 2+ (NEGATIVE)
[2017-08-08 19:00] LABS: URINE BACTERIA RARE /hpf (NONE SEEN); URINE MUCUS MANY
[2017-08-08] MEDS ORDERED: MELATONIN 5 MG TABLETS PO PRN (22:00)
[2017-08-08] MEDS: THIAMINE HCL 100 MG TABLET (FP) PO SCH (22:16)
[2017-08-09] MEDS: IBUPROFEN 400 MG TABLET (FP) PO PRN ×2 (08:42→22:24)
[2017-08-09] MEDS: diazePAM 5 MG TABLET PO PRN ×4 (08:42→22:22)
--- NOTE | 2017-08-09 09:02 | EKG ---
Test Reason : Blood Pressure : / mmHG Vent. Rate : 061 BPM Atrial Rate : 061 BPM P-R Int : 134 ms QRS Dur : 092 ms QT Int : 416 ms P-R-T Axes : 072 072 049 degrees QTc Int : 418 ms NORMAL SINUS RHYTHM NORMAL ECG WHEN COMPARED WITH ECG OF 12-DEC-2016 23:16, NO SIGNIFICANT CHANGE WAS FOUND Confirmed by OSIEL ALAN MD ([id number]) on 08/09/2017 9:02:12 AM Referred By: Confirmed By:OSIEL ALAN MD
--- NOTE | 2017-08-09 09:10 | CONSULT ---
[facility] Psychiatric Consult - Data Date of interview: 08/09/17 Identifying data: Patient is a 22 year old single male, without kids, domiciled and employed. This is one of multiple admissions for patient. Pt admitted for opiate dependence. Substance Abuse History: Smoking Cessation. Smoking history: Current every day smoker. Have you smoked in the past 12 months: Yes. Aproximately how many cigarettes per day: 10. Cigars Per Day: 0. Hx Chewing Tobacco Use: No. Initiated information on smoking cessation: Yes. 'Breaking Loose' booklet given : 08/08/17. - Substance & Tx. History. Hx Alcohol Use: No (DENIES). Hx Substance Use: Yes (HEROIN/XANAX/COCAINE). Substance Use Type: Cocaine, Heroin , Tranquilizers. Hx Substance Use Treatment: Yes (LAST TX AT [facility]). - Substances Abused. Heroin. Route: Injection. Frequency: Daily. Amount used: 20 bags. Age of first use: 17. Date of Last Use: 08/07/17. Crack. Route: Smoking. Frequency: Daily. Amount used: $50. Age of first use: 17. Date of Last Use: 08/07/17. Alprazolam (Xanax). Route: Oral. Frequency: 3- 6 times per week. Amount used: 2mg. Age of first use: 17. Date of Last Use: 08/04/17 Medical History: Denies. Psychiatric History: Patient denies h/o psychiatric hospitalizations and suicide attempt. OPD was provided at [facility] ([facility] in [facility] over one year ago. [facility] was a rehab program in which patient was receiving suboxone. Patient reports poor sleep. Physical/Sexual Abuse/Trauma History: Denies. Mental Status Exam - Mental Status Exam Alert and Oriented to: Time, Place, Person Cognitive Function: Good Patient Appearance: Well Groomed Mood: Hopeful Affect: Mood Congruent Patient Behavior: Appropriate, Cooperative Speech Pattern: Clear, Appropriate Voice Loudness: Normal Thought Process: Intact, Goal Oriented Hallucinations: Denies Suicidal Ideation: Denies Homicidal Ideation: Denies Insight/Judgement: Poor Sleep: Poorly Appetite: Fair Muscle strength/Tone: Normal Gait/Station: Normal Psychiatric Findings - Problem List ([place] 1, 2,3) (1) Cocaine dependence with withdrawal Current Visit: Yes Status: Acute (2) Nicotine dependence Current Visit: Yes Status: Chronic Qualifiers: Nicotine product type: cigarettes Substance use status: in withdrawal Qualified Code(s): F17.213 - Nicotine dependence, cigarettes, with withdrawal (3) Opioid dependence with withdrawal Current Visit: Yes Status: Acute (4) Insomnia Current Visit: Yes Status: Acute Qualifiers: Insomnia type: unspecified Qualified Code(s): G47.00 - Insomnia, unspecified - Initial Treatment Plan Initial Treatment Plan: Psychoeducation provided. Detoxification in progress. Ambien 10mg qhs prn ordered. Benefits and side effects discussed. Pt. made aware of the risk parasomnia. Verbal consent given.
[2017-08-09 09:38] LABS: HEMATOCRIT 36.3 % (35.4-49); HEMOGLOBIN 12.3 GM/dL (11.7-16.9); MCH 29.1 pg (25.7-33.7); MEAN CELL VOLUME 85.6 fl (80-96); MEAN PLT VOLUME 8.7 fl (7.5-11.1); PLATELET COUNT 167 K/MM3 (134-434); RBC 4.24 M/mm3 (4.00-5.60); RDW 12.2 % (11.9-15.9); WHITE BLOOD COUNT 4.3 K/mm3 (4.0-10.0)
[2017-08-09 09:59] LABS: CHLORIDE 102 mmol/L (98-107); POTASSIUM 4.3 mmol/L (3.5-5.1); SODIUM 141 mmol/L (136-145)
[2017-08-09] MEDS ORDERED: METHADONE HCL 10 MG TABLET (FOR DETOX USE ONLY) PO ONE (10:00)
[2017-08-09] MEDS: PRENATAL VITAMINS W/ FOLIC ACID TABLET (FP) PO SCH (10:06)
[2017-08-09] MEDS: BACITRACIN 0.9 GM PACKET TP SCH ×2 (10:06→22:22)
[2017-08-09] MEDS: NICOTINE 14 MG/24 HOURS TOPICAL PATCH TD SCH (10:07)
[2017-08-09 10:30] LABS: ALBUMIN 3.3 g/dl (3.4-5.0); ALK PHOS 68 U/L (45-117); ANION GAP 9 (8-16); BILIRUBIN,TOTAL 0.7 mg/dL (0.2-1.0); BLOOD UREA NITROGEN 10 mg/dL (7-18); CO2 30 mmol/L (21-32); CREATININE 0.7 mg/dL (0.7-1.3); GLUCOSE,RANDOM 83 mg/dL (74-106); SGOT/AST 43 U/L (15-37); SGPT/ALT 122 U/L (12-78); TOT PROT 7.2 g/dl (6.4-8.2)
--- NOTE | 2017-08-09 17:17 | PN ---
BHS COWS - Scale Resting Pulse: 0= [place] 80 or Below Sweatin= Chills/Flushing Restless Observation: 1= Difficult to Sit Still Pupil Size: 0= Normal to Room Light Bone or Joint Aches: 2= Severe Diffuse Aches Runny Nose/ Eye Tearin= Runny Nose/Eyes GI Upset > 30mins: 0= None Tremor Observation of Outstretched Hands: 0= None Yawning Observation: 1= 1-2x During Session Anxiety or Irritability: 2=Irritable/Anxious Goose Flesh Skin: 3=Piloerection COWS Score: 12 BHS Progress Note (SOAP) Subjective: Interrupted Sleep, Sweating, Hot / Cold Sensations, Constipation. Objective: PATIENT A & O X 2 (UNCERTAIN ABOUT CURRENT DAY / DATE). PATIENT OBSERVED AMBULATING ON UNIT. NO ACUTE DISTRESS. 08/09/17 17:16 Vital Signs Temperature 97.2 F L 08/09/17 09:12 Pulse Rate 77 08/09/17 09:12 Respiratory Rate 18 08/09/17 09:12 Blood Pressure 121/66 08/09/17 09:12 O2 Sat by Pulse Oximetry (%) Laboratory Tests 08/08/17 08/09/17 08/09/17 15:35 08:00 08:00 WBC 4.3 RBC 4.24 Hgb 12.3 Hct 36.3 MCV 85.6 MCH 29.1 MCHC 34.0 RDW 12.2 Plt Count 167 MPV 8.7 D Sodium Potassium Chloride Carbon Dioxide Anion Gap BUN Creatinine Creat Clearance w eGFR Random Glucose Calcium Total Bilirubin AST ALT Alkaline Phosphatase Total Protein Albumin Urine Color Yellow Urine Appearance Turbid Urine pH 5.0 Ur Specific [place] 1.032 Urine Protein 2+ H D Urine Glucose (UA) Negative Urine Ketones Negative Urine Blood Negative Urine Nitrite Negative Urine Bilirubin Negative Urine Urobilinogen 2.0 Ur Leukocyte Esterase Negative Urine WBC (Auto) 4 Urine RBC (Auto) 5 Urine Bacteria Rare Urine Mucus Many RPR Titer HIV 1&2 Antibody Screen Negative HIV P24 Antigen Negative 08/09/17 08/09/17 08:00 08:00 WBC RBC Hgb Hct MCV MCH MCHC RDW Plt Count MPV Sodium 141 Potassium 4.3 D Chloride 102 Carbon Dioxide 30 Anion Gap 9 BUN 10 Creatinine 0.7 Creat Clearance w eGFR > 60 Random Glucose 83 Calcium 9.0 Total Bilirubin 0.7 AST 43 H ALT 122 H D Alkaline Phosphatase 68 Total Protein 7.2 Albumin 3.3 L Urine Color Urine Appearance Urine pH Ur Specific [place] Urine Protein Urine Glucose (UA) Urine Ketones Urine Blood Urine Nitrite Urine Bilirubin Urine Urobilinogen Ur Leukocyte Esterase Urine WBC (Auto) Urine RBC (Auto) Urine Bacteria Urine Mucus RPR Titer Nonreactive HIV 1&2 Antibody Screen HIV P24 Antigen LABS NOTED. Assessment: 08/09/17 17:16 WITHDRAWAL SYMPTOMS. Plan: CONTINUE DETOX. INCREASE DAILY PO FLUID INTAKE.
[2017-08-09] MEDS: ZOLPIDEM TARTRATE 5 MG TABLET PO PRN (22:22)
[2017-08-09] MEDS: THIAMINE HCL 100 MG TABLET (FP) PO SCH (22:22)
[2017-08-10] MEDS: diazePAM 5 MG TABLET PO PRN ×5 (03:45→23:25)
[2017-08-10] MEDS ORDERED: METHADONE HCL 5 MG TABLET (FOR DETOX USE ONLY) PO ONE (10:00)
[2017-08-10] MEDS: BACITRACIN 0.9 GM PACKET TP SCH ×2 (10:15→22:13)
[2017-08-10] MEDS: NICOTINE 14 MG/24 HOURS TOPICAL PATCH TD SCH (10:15)
[2017-08-10] MEDS: PRENATAL VITAMINS W/ FOLIC ACID TABLET (FP) PO SCH (10:15)
--- NOTE | 2017-08-10 10:18 | PN ---
BHS COWS - Scale Resting Pulse: 0= [place] 80 or Below Sweatin= Chills/Flushing Restless Observation: 3= Extraneous Movement Pupil Size: 2= Moderately Dilated Bone or Joint Aches: 4=Acute Joint/Muscle Pain Runny Nose/ Eye Tearin= None GI Upset > 30mins: 1= Stomach Cramp Tremor Observation of Outstretched Hands: 1= Tremor [place], Not Seen Yawning Observation: 1= 1-2x During Session Anxiety or Irritability: 1=Feels Anxious/Irritable Goose Flesh Skin: 0=Smooth Skin COWS Score: 14 BHS Progress Note (SOAP) Subjective: C/O ANXIETY,IRRITABILITY,HOT/COLD FLASHES, MUSCLE CRAMPS/ACHES, INTERMITTENT SLEEP-AMBIEN NOT EFFECTIVE. Objective: 08/10/17 10:17 Vital Signs 08/10/17 08/10/17 06:10 09:08 Temperature 97.1 F L 97.4 F L Pulse Rate 49 L 69 Respiratory 18 18 Rate Blood Pressure 105/60 100/54 Laboratory Tests 08/08/17 08/09/17 08/09/17 15:35 08:00 08:00 WBC 4.3 RBC 4.24 Hgb 12.3 Hct 36.3 MCV 85.6 MCH 29.1 MCHC 34.0 RDW 12.2 Plt Count 167 MPV 8.7 D Sodium Potassium Chloride Carbon Dioxide Anion Gap BUN Creatinine Creat Clearance w eGFR Random Glucose Calcium Total Bilirubin AST ALT Alkaline Phosphatase Total Protein Albumin Urine Color Yellow Urine Appearance Turbid Urine pH 5.0 Ur Specific [place] 1.032 Urine Protein 2+ H D Urine Glucose (UA) Negative Urine Ketones Negative Urine Blood Negative Urine Nitrite Negative Urine Bilirubin Negative Urine Urobilinogen 2.0 Ur Leukocyte Esterase Negative Urine WBC (Auto) 4 Urine RBC (Auto) 5 Urine Bacteria Rare Urine Mucus Many RPR Titer HIV 1&2 Antibody Screen Negative HIV P24 Antigen Negative 08/09/17 08/09/17 08:00 08:00 WBC RBC Hgb Hct MCV MCH MCHC RDW Plt Count MPV Sodium 141 Potassium 4.3 D Chloride 102 Carbon Dioxide 30 Anion Gap 9 BUN 10 Creatinine 0.7 Creat Clearance w eGFR > 60 Random Glucose 83 Calcium 9.0 Total Bilirubin 0.7 AST 43 H ALT 122 H D Alkaline Phosphatase 68 Total Protein 7.2 Albumin 3.3 L Urine Color Urine Appearance Urine pH Ur Specific [place] Urine Protein Urine Glucose (UA) Urine Ketones Urine Blood Urine Nitrite Urine Bilirubin Urine Urobilinogen Ur Leukocyte Esterase Urine WBC (Auto) Urine RBC (Auto) Urine Bacteria Urine Mucus RPR Titer Nonreactive HIV 1&2 Antibody Screen HIV P24 Antigen Assessment: 08/10/17 10:17 WITHDRAWAL SX Plan: CONTINUE DETOX FOLLOW UP WITH PSYCH RE: INSOMNIA MED RE-EVALUATION. INCREASE PO FLUIDS.
--- NOTE | 2017-08-10 16:37 | PN ---
Psychiatric Progress Note Vital Signs: Vital Signs Period Temp Pulse Resp BP Sys/Cruz Pulse Ox Last 24 Hr 96.6 F-97.7 F 49-73 16-18 100-117/54-73 Date of Session: 08/10/17 Chief Complaint:: [facility] HPI: Pt admitted for opiate dependence. ROS: denies. Current Medications: Active Medications Generic Name Dose Route Start Last Admin Trade Name Freq PRN Reason Stop Dose Admin Acetaminophen 650 mg 08/08/17 12:21 Tylenol - PO Q4H PRN FEVER Al Hydroxide/Mg Hydroxide 30 ml 08/08/17 12:21 Mylanta Oral Suspension - PO Q6H PRN DYSPEPSIA Bacitracin 0.9 gm 08/08/17 13:15 08/10/17 10:15 Bacitracin - TP 0.9 gm BID CARITO Administration Diazepam 10 mg 08/08/17 12:21 08/10/17 14:39 Valium - PO 08/11/17 12:20 10 mg Q4H PRN Administration WITHDRAWAL(CONT SUBST) Eucalyptus/Menthol/Phenol/Sorbitol 1 each 08/08/17 12:21 Cepastat Lozenge - MM Q4H PRN SORE THROAT Guaifenesin 10 ml 08/08/17 12:21 Robitussin Dm - PO Q6H PRN COUGH Ibuprofen 400 mg 08/08/17 12:21 08/09/17 22:24 Motrin - PO 400 mg Q6H PRN Administration PAIN LEVEL 4-6 Loperamide HCl 4 mg 08/08/17 12:21 Imodium - PO Q6H PRN DIARRHEA Magnesium Citrate 300 ml 08/08/17 12:21 Citroma - PO Q48H PRN CONSTIPATION Magnesium Hydroxide 30 ml 08/08/17 12:21 Milk Of Magnesia - PO DAILY PRN CONSTIPATION Methadone HCl 5 mg 08/13/17 06:00 Dolophine - PO 08/13/17 06:01 ONCE@0600 ONE Methadone HCl 15 mg 08/11/17 10:00 Dolophine - PO 08/11/17 10:01 ONCE ONE Methadone HCl 10 mg 08/12/17 10:00 Dolophine - PO 08/12/17 10:01 ONCE ONE Nicotine 14 mg 08/08/17 13:15 08/10/17 10:15 Nicoderm Patch - TD 14 mg DAILY CARITO Administration Nicotine Polacrilex 2 mg 08/08/17 12:21 Nicorette Gum - BC Q2H PRN NICOTINE REPLACEMENT RX Multivit/Folic Acid/Iron 1 tab 08/09/17 10:00 08/10/17 10:15 Vitamins (Sjr) - PO 1 tab DAILY CARITO Administration Pseudoephedrine/Triprolidine 1 combo 08/08/17 12:21 Actifed - PO TID PRN NASAL CONGESTION Thiamine HCl 100 mg 08/08/17 22:00 08/09/17 22:22 Vitamin B1 - PO 100 mg HS CARITO Administration Zolpidem Tartrate 10 mg 08/09/17 22:00 08/09/17 22:22 Ambien - PO 10 mg HS PRN Administration INSOMNIA Medication(s) Change(s): Will order Benadryl 50mg qhs for insomnia. To give with ambien 10mg qhs. Current Side Effect: No Lab tests ordered: No Lab tests reviewed: Yes Provider note:: Button Riveter spoke to patient concerning psychiatric consultation. Pt. accepted ambien 10mg last night but continues to report poor sleep. Pt. requesting additional medication. Will ordered Benadryl 50mg qhs for insomnia in addition with the ambien 10mg which is already ordered. Benefits and side effects discussed. Psychoeducation and sleep hygiene provided. Verbal consent given. Total face to face time:: 25 Mental Status Exam - Mental Status Exam Alert and Oriented to: Time, Place, Person Cognitive Function: Good Patient Appearance: Well Groomed Mood: Hopeful, Euthymic Affect: Appropriate, Mood Congruent Patient Behavior: Appropriate, Cooperative Speech Pattern: Clear, Appropriate Voice Loudness: Normal Thought Process: Intact, Goal Oriented Thought Disorder: Not Present Hallucinations: Denies Suicidal Ideation: Denies Homicidal Ideation: Denies Insight/Judgement: Poor Sleep: Poorly Appetite: Fair, Poor Muscle strength/Tone: Normal Gait/Station: Normal Psychiatric Treatment Plan - Problem List (1) Cocaine dependence with withdrawal Current Visit: Yes (2) Nicotine dependence Current Visit: Yes Qualifiers: Nicotine product type: cigarettes Substance use status: in withdrawal Qualified Code(s): F17.213 - Nicotine dependence, cigarettes, with withdrawal (3) Opioid dependence with withdrawal Current Visit: Yes (4) Insomnia Current Visit: Yes Qualifiers: Insomnia type: unspecified Qualified Code(s): G47.00 - Insomnia, unspecified (5) Substance-induced sleep disorder Current Visit: Yes
[2017-08-10] MEDS: THIAMINE HCL 100 MG TABLET (FP) PO SCH (22:13)
[2017-08-10] MEDS: ZOLPIDEM TARTRATE 5 MG TABLET PO PRN (22:16)
[2017-08-10] MEDS ORDERED: diphenhydrAMINE HCL 25 MG CAPSULE (FP) PO ONE (22:17)
[2017-08-10] MEDS: diphenhydrAMINE HCL 50 MG CAPSULE PO PRN (22:17)
[2017-08-11] MEDS: diazePAM 5 MG TABLET PO PRN ×2 (07:44→12:02)
[2017-08-11] MEDS ORDERED: METHADONE HCL 5 MG TABLET (FOR DETOX USE ONLY) PO ONE (10:00)
[2017-08-11] MEDS: PRENATAL VITAMINS W/ FOLIC ACID TABLET (FP) PO SCH (10:04)
[2017-08-11] MEDS: NICOTINE 14 MG/24 HOURS TOPICAL PATCH TD SCH (10:05)
[2017-08-11] MEDS: BACITRACIN 0.9 GM PACKET TP SCH ×2 (10:05→22:18)
--- NOTE | 2017-08-11 10:41 | PN ---
[facility] Progress Note (SOAP) Subjective: SLIGHT ANXIETY. PT REPORTS DETOX PROCEEDING WELL. ALERT O X 3. OOB AMBULATING WITH STEADY GAIT. SEEN DURING ROUNDS EATING BREAKFAST IN DAYROOM Objective: 08/11/17 10:40 Vital Signs 08/11/17 08/11/17 08/11/17 03:30 06:35 09:21 Temperature 97.9 F 97.0 F L Pulse Rate 53 L 67 Respiratory 18 18 18 Rate Blood Pressure 119/83 113/75 Laboratory Tests 08/08/17 08/09/17 08/09/17 15:35 08:00 08:00 WBC 4.3 RBC 4.24 Hgb 12.3 Hct 36.3 MCV 85.6 MCH 29.1 MCHC 34.0 RDW 12.2 Plt Count 167 MPV 8.7 D Sodium Potassium Chloride Carbon Dioxide Anion Gap BUN Creatinine Creat Clearance w eGFR Random Glucose Calcium Total Bilirubin AST ALT Alkaline Phosphatase Total Protein Albumin Urine Color Yellow Urine Appearance Turbid Urine pH 5.0 Ur Specific Hoffman 1.032 Urine Protein 2+ H D Urine Glucose (UA) Negative Urine Ketones Negative Urine Blood Negative Urine Nitrite Negative Urine Bilirubin Negative Urine Urobilinogen 2.0 Ur Leukocyte Esterase Negative Urine WBC (Auto) 4 Urine RBC (Auto) 5 Urine Bacteria Rare Urine Mucus Many RPR Titer HIV 1&2 Antibody Screen Negative HIV P24 Antigen Negative 08/09/17 08/09/17 08:00 08:00 WBC RBC Hgb Hct MCV MCH MCHC RDW Plt Count MPV Sodium 141 Potassium 4.3 D Chloride 102 Carbon Dioxide 30 Anion Gap 9 BUN 10 Creatinine 0.7 Creat Clearance w eGFR > 60 Random Glucose 83 Calcium 9.0 Total Bilirubin 0.7 AST 43 H ALT 122 H D Alkaline Phosphatase 68 Total Protein 7.2 Albumin 3.3 L Urine Color Urine Appearance Urine pH Ur Specific Hoffman Urine Protein Urine Glucose (UA) Urine Ketones Urine Blood Urine Nitrite Urine Bilirubin Urine Urobilinogen Ur Leukocyte Esterase Urine WBC (Auto) Urine RBC (Auto) Urine Bacteria Urine Mucus RPR Titer Nonreactive HIV 1&2 Antibody Screen HIV P24 Antigen Assessment: 08/11/17 10:41 SLIGHT WITHDRAWAL SX Plan: CONTINUE DETOX INCREASE PO FLUIDS
[2017-08-11] MEDS: THIAMINE HCL 100 MG TABLET (FP) PO SCH (22:08)
[2017-08-11] MEDS: ZOLPIDEM TARTRATE 5 MG TABLET PO PRN (22:08)
[2017-08-11] MEDS: diphenhydrAMINE HCL 50 MG CAPSULE PO PRN (22:09)
[2017-08-12] MEDS ORDERED: METHADONE HCL 10 MG TABLET (FOR DETOX USE ONLY) PO ONE (10:00)
[2017-08-12] MEDS: BACITRACIN 0.9 GM PACKET TP SCH ×2 (10:05→22:12)
[2017-08-12] MEDS: PRENATAL VITAMINS W/ FOLIC ACID TABLET (FP) PO SCH (10:05)
[2017-08-12] MEDS: NICOTINE 14 MG/24 HOURS TOPICAL PATCH TD SCH (10:05)
--- NOTE | 2017-08-12 16:01 | PN ---
[facility] Progress Note (SOAP) Subjective: Sweating, Fatigue. Objective: PATIENT A & O X 3, OBSERVED AMBULATING ON UNIT. NO ACUTE DISTRESS. 08/12/17 16:00 Vital Signs Temperature 97.4 F L 08/12/17 15:07 Pulse Rate 96 H 08/12/17 15:07 Respiratory Rate 20 08/12/17 15:07 Blood Pressure 114/66 08/12/17 15:07 O2 Sat by Pulse Oximetry (%) Laboratory Tests 08/08/17 08/09/17 08/09/17 15:35 08:00 08:00 WBC 4.3 RBC 4.24 Hgb 12.3 Hct 36.3 MCV 85.6 MCH 29.1 MCHC 34.0 RDW 12.2 Plt Count 167 MPV 8.7 D Sodium Potassium Chloride Carbon Dioxide Anion Gap BUN Creatinine Creat Clearance w eGFR Random Glucose Calcium Total Bilirubin AST ALT Alkaline Phosphatase Total Protein Albumin Urine Color Yellow Urine Appearance Turbid Urine pH 5.0 Ur Specific [place] 1.032 Urine Protein 2+ H D Urine Glucose (UA) Negative Urine Ketones Negative Urine Blood Negative Urine Nitrite Negative Urine Bilirubin Negative Urine Urobilinogen 2.0 Ur Leukocyte Esterase Negative Urine WBC (Auto) 4 Urine RBC (Auto) 5 Urine Bacteria Rare Urine Mucus Many RPR Titer HIV 1&2 Antibody Screen Negative HIV P24 Antigen Negative 08/09/17 08/09/17 08:00 08:00 WBC RBC Hgb Hct MCV MCH MCHC RDW Plt Count MPV Sodium 141 Potassium 4.3 D Chloride 102 Carbon Dioxide 30 Anion Gap 9 BUN 10 Creatinine 0.7 Creat Clearance w eGFR > 60 Random Glucose 83 Calcium 9.0 Total Bilirubin 0.7 AST 43 H ALT 122 H D Alkaline Phosphatase 68 Total Protein 7.2 Albumin 3.3 L Urine Color Urine Appearance Urine pH Ur Specific [place] Urine Protein Urine Glucose (UA) Urine Ketones Urine Blood Urine Nitrite Urine Bilirubin Urine Urobilinogen Ur Leukocyte Esterase Urine WBC (Auto) Urine RBC (Auto) Urine Bacteria Urine Mucus RPR Titer Nonreactive HIV 1&2 Antibody Screen HIV P24 Antigen LABS NOTED. Assessment: 08/12/17 16:00 WITHDRAWAL SYMPTOMS. Plan: CONTINUE DETOX. PATIENT SCHEDULED FOR D/C TOMORROW.
[2017-08-12] MEDS: THIAMINE HCL 100 MG TABLET (FP) PO SCH (22:12)
[2017-08-12] MEDS: ZOLPIDEM TARTRATE 5 MG TABLET PO PRN (22:12)
[2017-08-12] MEDS: diphenhydrAMINE HCL 50 MG CAPSULE PO PRN (22:13)
[2017-08-12] MEDS ORDERED: diphenhydrAMINE HCL 25 MG CAPSULE (FP) PO ONE (22:13)
[2017-08-13] MEDS ORDERED: METHADONE HCL 5 MG TABLET (FOR DETOX USE ONLY) PO ONE (06:00)
[2017-08-13 06:20] VITALS: BP 104/67; PULSE 55; TEMP 97.3
--- NOTE | 2017-08-13 11:27 | PN ---
[facility] Progress Note (SOAP) Subjective: pt completed heroin detox, going hoem today Objective: 08/13/17 11:26 Vital Signs - 24 hr 08/12/17 08/12/17 08/12/17 15:07 18:15 23:45 Temperature 97.4 F L 98 F 97.2 F L Pulse Rate 96 H 68 75 Respiratory 20 18 18 Rate Blood Pressure 114/66 110/76 123/74 08/13/17 08/13/17 08/13/17 00:30 03:30 06:20 Temperature 97.3 F L Pulse Rate 55 L Respiratory 18 18 18 Rate Blood Pressure 104/67 CBC, BMP 08/09/17 08:00 08/09/17 08:00 VSS labs WNL PE WNL Assessment: 08/13/17 11:27 heroin detox crack use Plan: d/c to home today
--- NOTE | 2017-08-13 11:29 | DS ---
[facility] Detox Discharge Summary Admission Date: 08/08/17 - History Present History: Cocaine Dependence, Opioid Dependence Additional Comments: pt did well nl PE - Physical Exam Results Vital Signs: Vital Signs Temperature 97.3 F L 08/13/17 06:20 Pulse Rate 55 L 08/13/17 06:20 Respiratory Rate 18 08/13/17 06:20 Blood Pressure 104/67 08/13/17 06:20 O2 Sat by Pulse Oximetry (%) - Treatment Hospital Course: Detox Protocol Followed, Detoxed Safely, Responded well, Discharged Condition Good - Medication Discharge Medications: Ambulatory Orders NK [No Known Home Medication] 12/19/16 - Diagnosis (1) Opioid dependence with withdrawal Status: Acute (2) Substance-induced sleep disorder Status: Acute (3) Nicotine dependence Status: Chronic Qualifiers: Nicotine product type: cigarettes Substance use status: in withdrawal Qualified Code(s): F17.213 - Nicotine dependence, cigarettes, with withdrawal (4) Substance induced mood disorder Status: Suspected - AMA Did Patient Leave Against Medical Advice: No
== END 2017-08-13 09:10 | disposition home or self-care (01) | DRG 773 ==
LOC: YASAS 10:43 → Y3N 12:38
PROVIDERS: ADMIT Surgery; ATTEND Surgery
PROC: HZ2ZZZZ Detoxification Services for Substance Abuse Treatment (ICD-10-PCS; principal; 2017-08-08)
DX: F11.23 Opioid dependence with withdrawal (principal); F14.23 Cocaine dependence with withdrawal; F17.210 Nicotine dependence, cigarettes, uncomplicated; F32.9 Major depressive disorder, single episode, unspecified; F19.24 Other psychoactive substance dependence with psychoactive substance-induced mood disorder; F19.282 Other psychoactive substance dependence with psychoactive substance-induced sleep disorder; G47.00 Insomnia, unspecified
CPT/HCPCS: 36415; 80053; 81003; 81015; 85027; 86593; 87389; 93005; 93010

== ENCOUNTER 2018-09-08 09:55 | Inpatient (IN) | payer OTHER ==
[2018-09-08 10:12] VITALS: BMI 21.7
--- NOTE | 2018-09-08 15:27 | HP ---
COWS - Scale Resting Pulse: 0= [place] 80 or Below Sweatin= Chills/Flushing Restless Observation: 1= Difficult to Sit Still Pupil Size: 1= Pupils >than Normal Bone or Joint Aches: 2= Severe Diffuse Aches Runny Nose/ Eye Tearin= Runny Nose/Eyes GI Upset > 30mins: 2= Nausea/Diarrhea Tremor Observation: 2= Slight Tremor Visible Yawning Observation: 2= >3x During Session Anxiety or Irritability: 2=Irritable/Anxious Goose Flesh Skin: 0=Smooth Skin COWS Score: 15 CIWA Score Nausea/Vomitin Muscle Tremors: 2 Anxiety: 2 Agitation: 2 Paroxysmal Sweats: 1-Minimal Palms Moist Orientation: 0-Oriented Tacttile Disturbances: 1-Very Mild Itch/Numbness Auditory Disturbances: 1-Very Mild Visual Disturbances: 0-None Headache: 2-Mild CIWA-Ar Total Score: 13 - Admission Criteria [facility] Guidelines: Admission for Medically Managed Detox: Requires at least one of the followin. CIWA greater than 12 2. Seizures within the past 24 hours 3. Delirium tremens within the past 24 hours 4. Hallucinations within the past 24 hours 5. Acute intervention needed for co occurring medical disorder 6. Acute intervention needed for co occurring psychiatric disorder 7. Severe withdrawal that cannot be handled at a lower level of care (continued vomiting, continued diarrhea, abnormal vital signs) requiring intravenous medication and/or fluids 8. Admission ROS [facility] Chief Complaint: i need help to stop using heroin and xanax Allergies/Adverse Reactions: Allergies Allergy/AdvReac Type Severity Reaction Status Date / Time No Known Allergies Allergy Verified 09/08/18 10:05 History of Present Illness: this 23 yeas old male with heroin and xanax dependence seeking detox,last treatment 03/27 [facility] multiple admissions in detox denied seizure nicotine dependence 10 cigarette,would like nicotine gum longest sobriety 1 year anxiety,depression,insomnia - Ebola screening Have you traveled outside of the country in the last 21 days: No (N) Have you had contact with anyone from an Ebola affected area: No Do you have a fever: No - Review of Systems Constitutional: Chills, Loss of Appetite, Malaise, Night Sweats, Changes in sleep, Weakness EENT: reports: Tearing, Nose Congestion Respiratory: reports: No Symptoms reported Cardiac: reports: No Symptoms Reported GI: reports: Nausea, Vomiting, Abdominal cramping : reports: No Symptoms Reported Musculoskeletal: reports: Back Pain, Joint Pain, Muscle Pain, Joint Stiffness Integumentary: reports: Dryness Neuro: reports: Headache, Tremors Endocrine: reports: No Symptoms Reported Hematology: reports: No Symptoms Reported Psychiatric: reports: No Sypmtoms Reported, Judgement Intact, Mood/Affect Appropiate, Orientated x3, Agitated, Anxious, Depressed, other (insomnia) Patient History - Patient Medical History Hx Anemia: No Hx Asthma: No Hx Chronic Obstructive Pulmonary Disease (COPD): No Hx Cancer: No Hx Cardiac Disorders: No Hx Congestive Heart Failure: No Hx Hypertension: No Hx Hypercholesterolemia: No Hx Pacemaker: No HX Cerebrovascular Accident: No Hx Seizures: No Hx Dementia: No Hx Diabetes: No Hx Gastrointestinal Disorders: No Hx Liver Disease: No Hx Genitourinary Disorders: No Hx Sexually Transmitted Disorders: No Hx Renal Disease (ESRD): No Hx Thyroid Disease: No Hx Human Immunodeficiency Virus (HIV): No (last 07/23 negative hx) Hx Hepatitis C: No Hx Depression: Yes (No meds; Requests eval) Hx Suicide Attempt: No (Denies S/I) Hx Bipolar Disorder: No Hx Schizophrenia: No Other Medical History: no suicidal,no homiidal,insomnia - Patient Surgical History Past Surgical History: No Hx Neurologic Surgery: No Hx Cataract Extraction: No Hx Cardiac Surgery: No Hx Lung Surgery: No Hx Breast Surgery: No Hx Breast Biopsy: No Hx Abdominal Surgery: No Hx Appendectomy: No Hx Cholecystectomy: No Hx Genitourinary Surgery: No Hx Section: No Hx Orthopedic Surgery: No Anesthesia Reaction: No - PPD History Previous Implant?: Yes Documented Results: Negative w/o proof Date: 08/25/16 Results: 0 mm PPD to be Administered?: No - Smoking Cessation Smoking history: Current every day smoker Have you smoked in the past 12 months: Yes Aproximately how many cigarettes per day: 10 Cigars Per Day: 0 Hx Chewing Tobacco Use: No Initiated information on smoking cessation: Yes 'Breaking Loose' booklet given: 09/08/18 - Substance & Tx. History Hx Alcohol Use: No Hx Substance Use: Yes Substance Use Type: Heroin, Tranquilizers Hx Substance Use Treatment: Yes ([facility] 03/27) - Substances abused Heroin Substance route: Injection Frequency: Daily Amount used: 20 bags Age of first use: 17 Date of last use: 09/07/18 Alprazolam (Xanax) Substance route: Oral Frequency: Daily Amount used: 6 2mg tabs Age of first use: 14 Date of last use: 09/07/18 Family Disease History - Family Disease History Family Disease History: Other: Mother (HTN) Admission Physical Exam [facility] - Vital Signs Vital Signs: Vital Signs - 24 hr 09/08/18 09/08/18 10:06 14:16 Temperature 97.4 F L 97.2 F L Pulse Rate 51 L 62 Respiratory 18 18 Rate Blood Pressure 106/65 103/60 - Physical General Appearance: Yes: Moderate Distress, Tremorous, Irritable, Sweating, Anxious HEENTM: Yes: Normal ENT Inspection, STEPHANIE, Pharynx Normal Respiratory: Yes: Lungs Clear, Normal Breath Sounds, No Respiratory Distress Neck: Yes: Within Normal Limits, Supple, Trachea in good position Breast: Yes: Within Normal Limits Cardiology: Yes: Within Normal Limits, Regular Rhythm, Regular Rate Abdominal: Yes: Within Normal Limits, Normal Bowel Sounds, Non Tender, Flat, Soft Genitourinary: Yes: Within Normal Limits Back: Yes: Muscle Spasm Musculoskeletal: Yes: Back pain, Joint Stiffness, Muscle Pain Extremities: Yes: Tremors Neurological: Yes: doughnut glazier II-XII NML intact, Fully Oriented, Alert, Motor Strength 5/5 Integumentary: Yes: Dry, Track Christian Lymphatic: Yes: Within Normal Limits - Diagnostic (1) Opioid dependence with withdrawal Current Visit: No Status: Acute (2) Anxiety and depression Current Visit: No Status: Acute (3) IVDU (intravenous drug user) Current Visit: No Status: Acute (4) Insomnia Current Visit: No Status: Acute Qualifiers: Insomnia type: unspecified Qualified Code(s): G47.00 - Insomnia, unspecified (5) Sedative, hypnotic, or anxiolytic withdrawal Current Visit: No Status: Acute (6) Nicotine dependence Current Visit: No Status: Chronic Qualifiers: Nicotine product type: cigarettes Substance use status: in withdrawal Qualified Code(s): F17.213 - Nicotine dependence, cigarettes, with withdrawal Cleared for Admission [facility] - Detox or Rehab [facility] Level of Care: Medically Managed Detox Regimen/Protocol: Methadone Inpatient Rehab Admission - Rehab Decision to Admit Inpatient rehab admission?: No
[2018-09-08] MEDS ORDERED: ACETAMINOPHEN 325 MG TABLET (FP) PO PRN ×2 (15:36)
[2018-09-08] MEDS ORDERED: BISMUTH SUBSALICYLATE 524 MG/30 ML UD PO PRN (15:36)
[2018-09-08] MEDS ORDERED: MAG HYDROX/AL HYDROX/SIMETH 30 ML UNIT-DOSE CUP PO PRN (15:36)
[2018-09-08] MEDS ORDERED: MAGNESIUM CITRATE 300 ML BOTTLE PO PRN (15:36)
[2018-09-08] MEDS ORDERED: METHOCARBAMOL 500 MG TABLET PO PRN (15:36)
[2018-09-08] MEDS ORDERED: MAGNESIUM HYDROX 2400MG/30ML ORAL SUSPENSION 30 ML CUP PO PRN (15:36)
[2018-09-08] MEDS ORDERED: IBUPROFEN 400 MG TABLET (FP) PO PRN (15:36)
[2018-09-08] MEDS ORDERED: MENTHOL/PHENOL 1 EACH UD MM PRN (15:36)
[2018-09-08] MEDS ORDERED: METHADONE HCL 10 MG TABLET (FOR DETOX USE ONLY) PO ONE (16:15)
[2018-09-08] MEDS: NICOTINE 21 MG/24 HOURS TOPICAL PATCH TD SCH (17:50)
[2018-09-08] MEDS: diazePAM 5 MG TABLET PO PRN ×2 (17:50→22:45)
[2018-09-08] MEDS: MELATONIN 5 MG TABLETS PO PRN (22:43)
[2018-09-08] MEDS: THIAMINE HCL 100 MG TABLET (FP) PO SCH (22:43)
[2018-09-09] MEDS: diazePAM 5 MG TABLET PO PRN ×4 (07:02→22:29)
[2018-09-09] MEDS ORDERED: METHADONE HCL 10 MG TABLET (FOR DETOX USE ONLY) ONE (08:47)
[2018-09-09] MEDS ORDERED: METHADONE HCL 5 MG TABLET (FOR DETOX USE ONLY) ONE (08:48)
[2018-09-09] MEDS ORDERED: COLLOIDAL OATMEAL 1 BAR EACH TP PRN (09:23)
[2018-09-09] MEDS ORDERED: METHADONE (DETOX) 20 MG, METHADONE (DETOX) 5 MG PO ONE (10:00)
[2018-09-09] MEDS: NICOTINE 21 MG/24 HOURS TOPICAL PATCH TD SCH (10:39)
[2018-09-09] MEDS: PRENATAL VITAMINS W/ FOLIC ACID TABLET (FP) PO SCH (10:39)
--- NOTE | 2018-09-09 11:21 | PN ---
S CIWA - CIWA Score Nausea/Vomitin-Mild Nausea/No Vomiting Muscle Tremors: 3 Anxiety: 3 Agitation: 3 Paroxysmal Sweats: 1-Minimal Palms Moist Orientation: 0-Oriented Tacttile Disturbances: 1-Very Mild Itch/Numbness Auditory Disturbances: 0-None Visual Disturbances: 0-None Headache: 0-None Present CIWA-Ar Total Score: 12 [facility] COWS - Scale Resting Pulse: 0= [place] 80 or Below Sweatin= Chills/Flushing Restless Observation: 0= Sits Still Pupil Size: 0= Normal to Room Light Bone or Joint Aches: 2= Severe Diffuse Aches Runny Nose/ Eye Tearin= Nasal Congestion GI Upset > 30mins: 2= Nausea/Diarrhea Tremor Observation of Outstretched Hands: 2= Slight Tremor Visible Yawning Observation: 2= >3x During Session Anxiety or Irritability: 2=Irritable/Anxious Goose Flesh Skin: 0=Smooth Skin COWS Score: 12 S Progress Note (SOAP) Subjective: 23 years old male admitted on 09/08/18 for benzo and opiate withdrawal sx management doing well with valium and methadone detox regimen ambulating on hallway good hygiene discuss medication assisted treatment program Objective: 09/09/18 11:20 Vital Signs Temperature 96.9 F L 09/09/18 09:24 Pulse Rate 72 09/09/18 09:24 Respiratory Rate 18 09/09/18 09:24 Blood Pressure 113/68 09/09/18 09:24 O2 Sat by Pulse Oximetry (%) 09/09/18 11:21 lab pending Assessment: 09/09/18 11:21 benzo and opiate withdrawal sx Plan: continue benzo and opiate detox
[2018-09-09 11:32] LABS: HEMATOCRIT 37.3 % (35.4-49); HEMOGLOBIN 12.6 GM/dL (11.7-16.9); MCH 28.9 pg (25.7-33.7); MCHC 33.8 g/dl (32.0-35.9); MEAN CELL VOLUME 85.5 fl (80-96); MEAN PLT VOLUME 7.5 fl (7.5-11.1); PLATELET COUNT 274 K/MM3 (134-434); RBC 4.37 M/mm3 (4.00-5.60); RDW 13.1 % (11.9-15.9); WHITE BLOOD COUNT 4.7 K/mm3 (4.0-10.0)
[2018-09-09 11:43] LABS: ALBUMIN 3.7 g/dl (3.4-5.0); BLOOD UREA NITROGEN 10.7 mg/dL (7-18); CALCIUM 9.1 mg/dL (8.5-10.1); CREATININE 0.8 mg/dL (0.55-1.3); POTASSIUM 4.1 mmol/L (3.5-5.1); TOT PROT 7.7 g/dl (6.4-8.2)
[2018-09-09] MEDS: HYDROCORTISONE 1% TOPICAL CREAM 30 GM TUBE TP SCH ×2 (13:09→22:30)
[2018-09-09] MEDS: THIAMINE HCL 100 MG TABLET (FP) PO SCH (22:29)
[2018-09-10] MEDS: diazePAM 5 MG TABLET PO PRN ×4 (06:00→20:03)
[2018-09-10] MEDS: cloNIDine HCL 0.1 MG TABLET PO PRN ×2 (09:35→19:23)
[2018-09-10] MEDS: PRENATAL VITAMINS W/ FOLIC ACID TABLET (FP) PO SCH (09:35)
[2018-09-10] MEDS ORDERED: METHADONE HCL 10 MG TABLET (FOR DETOX USE ONLY) PO ONE (10:00)
[2018-09-10] MEDS: NICOTINE 21 MG/24 HOURS TOPICAL PATCH TD SCH (10:20)
[2018-09-10] MEDS: HYDROCORTISONE 1% TOPICAL CREAM 30 GM TUBE TP SCH ×2 (10:20→22:05)
--- NOTE | 2018-09-10 10:30 | PN ---
S CIWA - CIWA Score Nausea/Vomitin-No Nausea/No Vomiting Muscle Tremors: 2 Anxiety: 4-Mod. Anxious/Guarded Agitation: 3 Paroxysmal Sweats: No Perspiration Orientation: 0-Oriented Tacttile Disturbances: 0-None Auditory Disturbances: 0-None Visual Disturbances: 0-None Headache: 0-None Present CIWA-Ar Total Score: 9 [facility] COWS - Scale Resting Pulse: 1= [place] 81-100 Sweatin= Chills/Flushing Restless Observation: 0= Sits Still Pupil Size: 0= Normal to Room Light Bone or Joint Aches: 1= Mild Discomfort Runny Nose/ Eye Tearin= Nasal Congestion GI Upset > 30mins: 1= Stomach Cramp Tremor Observation of Outstretched Hands: 2= Slight Tremor Visible Yawning Observation: 0= None Anxiety or Irritability: 2=Irritable/Anxious Goose Flesh Skin: 0=Smooth Skin COWS Score: 9 S Progress Note (SOAP) Subjective: patient requests to be seen by a psychiatrist due to long history of depression and anxiety and insomnia offer seroquel and trazadon prn hs patient refused that experienced negative effects from both medications denies suicidal ideation requests to be seen by a drill sharpener operator that underweight unable to gain weight ensure 120 ml bid Objective: 09/10/18 10:29 Vital Signs Temperature 97.5 F L 09/10/18 09:31 Pulse Rate 88 09/10/18 09:31 Respiratory Rate 18 09/10/18 09:31 Blood Pressure 124/86 09/10/18 09:31 O2 Sat by Pulse Oximetry (%) Laboratory Last Values WBC 4.7 K/mm3 (4.0-10.0) 09/09/18 08:00 RBC 4.37 M/mm3 (4.00-5.60) 09/09/18 08:00 Hgb 12.6 GM/dL (11.7-16.9) 09/09/18 08:00 Hct 37.3 % (35.4-49) 09/09/18 08:00 MCV 85.5 fl (80-96) 09/09/18 08:00 MCH 28.9 pg (25.7-33.7) 09/09/18 08:00 MCHC 33.8 g/dl (32.0-35.9) 09/09/18 08:00 RDW 13.1 % (11.9-15.9) 09/09/18 08:00 Plt Count 274 K/MM3 (134-434) D 09/09/18 08:00 MPV 7.5 fl (7.5-11.1) D 09/09/18 08:00 Sodium 140 mmol/L (136-145) 09/09/18 08:00 Potassium 4.1 mmol/L (3.5-5.1) 09/09/18 08:00 Chloride 103 mmol/L (98-107) 09/09/18 08:00 Carbon Dioxide 31 mmol/L (21-32) 09/09/18 08:00 Anion Gap 7 MMOL/L (8-16) L 09/09/18 08:00 BUN 10.7 mg/dL (7-18) 09/09/18 08:00 Creatinine 0.8 mg/dL (0.55-1.3) 09/09/18 08:00 Est GFR (CKD-EPI)AfAm 144.91 09/09/18 08:00 Est GFR (CKD-EPI)NonAf 125.03 09/09/18 08:00 Random Glucose 70 mg/dL (74-106) L 09/09/18 08:00 Calcium 9.1 mg/dL (8.5-10.1) 09/09/18 08:00 Total Bilirubin 1.0 mg/dL (0.2-1) 09/09/18 08:00 AST 42 U/L (15-37) H 09/09/18 08:00 ALT 76 U/L (13-61) H 09/09/18 08:00 Alkaline Phosphatase 74 U/L (45-117) 09/09/18 08:00 Total Protein 7.7 g/dl (6.4-8.2) 09/09/18 08:00 Albumin 3.7 g/dl (3.4-5.0) 09/09/18 08:00 RPR Titer Nonreactive (NONREACTIVE) 09/09/18 08:00 HIV 1&2 Antibody Screen Cancelled 09/09/18 08:00 HIV P24 Antigen Cancelled 09/09/18 08:00 lab noted Assessment: 09/10/18 10:29 benzo and opiate withdrawal sx Plan: continue benzo and opiate detox
[2018-09-10 13:30] LABS: PH,URINE 8.5 (5.0-8.0); URINE APPEARANCE CLEAR; URINE BILIRUBIN NEGATIVE (NEGATIVE); URINE COLOR YELLOW; URINE GLUCOSE (UA) NEGATIVE (NEGATIVE); URINE KETONE NEGATIVE (NEGATIVE); URINE LEUK ESTERASE NEGATIVE (NEGATIVE); URINE NITRITE NEGATIVE (NEGATIVE); URINE PROTEIN NEGATIVE (NEGATIVE); URINE UROBILINOGEN 0.2 mg/dL (0.2-1.0)
--- NOTE | 2018-09-10 13:48 | CONSULT ---
[facility] Psychiatric Consult - Data Date of interview: 09/10/18 Admission source: [facility] Identifying data: Readmission to [facility] for this 23 y/o male self- referred for detoxification (marijuana, alcohol, cocaine (crack),heroin). Examined at [address] [place] [address]. Patient is single without children, homeless, unemployed and deprived of income. Substance Abuse History: Confirmed by patient in this interview. Details in current [facility] report as follows : Smoking history: Current every day smoker. Have you smoked in the past 12 months: Yes. Aproximately how many cigarettes per day: 10. Cigars Per Day: 0. Hx Chewing Tobacco Use: No. Initiated information on smoking cessation: Yes. 'Breaking Loose' booklet given: . - Substance & Tx. History. Hx Alcohol Use: No. Hx Substance Use: Yes. Substance Use Type: Heroin, Tranquilizers. Hx Substance Use Treatment: Yes ( [facility] 03/27). - Substances abused. Heroin. Substance route: Injection. Frequency: Daily. Amount used: 20 bags. Age of first use: 17. Date of last use: 09/07/18. Alprazolam (Xanax). Substance route: Oral. Frequency: Daily. Amount used: 6 2mg tabs. Age of first use: 14. Date of last use: 09/07 Medical History: Patient endorses good general health. Psychiatric History: Patient denies psychiatric hospitalizations, OPD care or suicide attempts. Review of records ([facility]) indicates prior exposure, during adolescence, to fluvoxamine to address OCD issues. Mr Martinez was diagnosed in the past with OCD Personality Disorder and Social Phobia. Dropped out of OPD follow-up several months ago. Physical/Sexual Abuse/Trauma History: Patient denies. Additional Comment: No toxicology for review. Mental Status Exam - Mental Status Exam Alert and Oriented to: Time, Place, Person Cognitive Function: Good Patient Appearance: Well Groomed Mood: Hopeful, Euthymic Affect: Appropriate, Normal Range Patient Behavior: Appropriate, Cooperative Speech Pattern: Clear, Appropriate Voice Loudness: Normal Thought Process: Intact, Goal Oriented Thought Disorder: Not Present Hallucinations: Denies Suicidal Ideation: Denies Homicidal Ideation: Denies Insight/Judgement: Poor Sleep: Poorly, Difficulty falling asleep Appetite: Good Muscle strength/Tone: Normal Gait/Station: Normal Psychiatric Findings - Problem List ([place] 1, 2,3) (1) Opioid dependence with withdrawal Current Visit: Yes Status: Acute (2) Cannabis dependence Current Visit: Yes Status: Chronic (3) Cocaine dependence Current Visit: Yes Status: Chronic Qualifiers: Substance use status: uncomplicated Qualified Code(s): F14.20 - Cocaine dependence, uncomplicated (4) Nicotine dependence Current Visit: Yes Status: Chronic Qualifiers: Nicotine product type: cigarettes Substance use status: in withdrawal Qualified Code(s): F17.213 - Nicotine dependence, cigarettes, with withdrawal (5) Substance induced mood disorder Current Visit: Yes Status: Chronic (6) History of OCD (obsessive compulsive disorder) Current Visit: Yes Status: Chronic (7) Insomnia Current Visit: Yes Status: Chronic Qualifiers: Insomnia type: unspecified Qualified Code(s): G47.00 - Insomnia, unspecified (8) Non-compliance Current Visit: Yes Status: Chronic - Initial Treatment Plan Initial Treatment Plan: Interviewed in the presence of medical students ( patient gave verbal consent). Psychoeducation and motivational counseling. Support. Sleep hygiene. Detoxification. NA meetings. Relapse prevention (MAT) discussed with the patient. Not interested. Groups. Seroquel 50 mg po hs ( patient's request).Side effects/benefits discussed with patient. Mr Martinez gave verbal consent. Observation.
[2018-09-10] MEDS ORDERED: QUEtiapine FUMARATE 50 MG TABLET PO SCH (22:00)
[2018-09-10] MEDS: THIAMINE HCL 100 MG TABLET (FP) PO SCH (22:06)
[2018-09-11] MEDS: diazePAM 5 MG TABLET PO PRN ×2 (06:42→12:06)
[2018-09-11] MEDS ORDERED: METHADONE HCL 10 MG TABLET (FOR DETOX USE ONLY) ONE (08:28)
[2018-09-11] MEDS ORDERED: METHADONE HCL 5 MG TABLET (FOR DETOX USE ONLY) ONE (08:28)
[2018-09-11] MEDS ORDERED: METHADONE (DETOX) 10 MG, METHADONE (DETOX) 5 MG PO ONE (10:00)
[2018-09-11] MEDS: NICOTINE 21 MG/24 HOURS TOPICAL PATCH TD SCH (10:31)
[2018-09-11] MEDS: PRENATAL VITAMINS W/ FOLIC ACID TABLET (FP) PO SCH (10:31)
[2018-09-11] MEDS: HYDROCORTISONE 1% TOPICAL CREAM 30 GM TUBE TP SCH ×2 (10:33→21:52)
--- NOTE | 2018-09-11 13:44 | PN ---
S CIWA - CIWA Score Nausea/Vomitin-Mild Nausea/No Vomiting Muscle Tremors: 2 Anxiety: 1-Mildly Anxious Agitation: 1-Slight > Activity Paroxysmal Sweats: 1-Minimal Palms Moist Orientation: 0-Oriented Tacttile Disturbances: 0-None Auditory Disturbances: 0-None Visual Disturbances: 0-None Headache: 0-None Present CIWA-Ar Total Score: 6 BHS COWS - Scale Resting Pulse: 1= [place] 81-100 Sweatin= Chills/Flushing Restless Observation: 0= Sits Still Pupil Size: 0= Normal to Room Light Bone or Joint Aches: 1= Mild Discomfort Runny Nose/ Eye Tearin= None GI Upset > 30mins: 0= None Tremor Observation of Outstretched Hands: 1= Tremor [place], Not Seen Yawning Observation: 1= 1-2x During Session Anxiety or Irritability: 1=Feels Anxious/Irritable Goose Flesh Skin: 0=Smooth Skin COWS Score: 6 S Progress Note (SOAP) Subjective: doing well with valium and methadone detox regimen mild body aches less tremor discuss aftercare with staff patient prefers [facility] for benzo and opiate recovery Objective: 09/11/18 13:46 Vital Signs Temperature 97.2 F L 09/11/18 13:22 Pulse Rate 87 09/11/18 13:22 Respiratory Rate 18 09/11/18 13:22 Blood Pressure 130/84 09/11/18 13:22 O2 Sat by Pulse Oximetry (%) Laboratory Last Values WBC 4.7 K/mm3 (4.0-10.0) 09/09/18 08:00 RBC 4.37 M/mm3 (4.00-5.60) 09/09/18 08:00 Hgb 12.6 GM/dL (11.7-16.9) 09/09/18 08:00 Hct 37.3 % (35.4-49) 09/09/18 08:00 MCV 85.5 fl (80-96) 09/09/18 08:00 MCH 28.9 pg (25.7-33.7) 09/09/18 08:00 MCHC 33.8 g/dl (32.0-35.9) 09/09/18 08:00 RDW 13.1 % (11.9-15.9) 09/09/18 08:00 Plt Count 274 K/MM3 (134-434) D 09/09/18 08:00 MPV 7.5 fl (7.5-11.1) D 09/09/18 08:00 Sodium 140 mmol/L (136-145) 09/09/18 08:00 Potassium 4.1 mmol/L (3.5-5.1) 09/09/18 08:00 Chloride 103 mmol/L (98-107) 09/09/18 08:00 Carbon Dioxide 31 mmol/L (21-32) 09/09/18 08:00 Anion Gap 7 MMOL/L (8-16) L 09/09/18 08:00 BUN 10.7 mg/dL (7-18) 09/09/18 08:00 Creatinine 0.8 mg/dL (0.55-1.3) 09/09/18 08:00 Est GFR (CKD-EPI)AfAm 144.91 09/09/18 08:00 Est GFR (CKD-EPI)NonAf 125.03 09/09/18 08:00 Random Glucose 70 mg/dL (74-106) L 09/09/18 08:00 Calcium 9.1 mg/dL (8.5-10.1) 09/09/18 08:00 Total Bilirubin 1.0 mg/dL (0.2-1) 09/09/18 08:00 AST 42 U/L (15-37) H 09/09/18 08:00 ALT 76 U/L (13-61) H 09/09/18 08:00 Alkaline Phosphatase 74 U/L (45-117) 09/09/18 08:00 Total Protein 7.7 g/dl (6.4-8.2) 09/09/18 08:00 Albumin 3.7 g/dl (3.4-5.0) 09/09/18 08:00 Urine Color Yellow 09/10/18 11:25 Urine Appearance Clear 09/10/18 11:25 Urine pH 8.5 (5.0-8.0) H D 09/10/18 11:25 Ur Specific [place] 1.008 (1.010-1.035) L 09/10/18 11:25 Urine Protein Negative (NEGATIVE) 09/10/18 11:25 Urine Glucose (UA) Negative (NEGATIVE) 09/10/18 11:25 Urine Ketones Negative (NEGATIVE) 09/10/18 11:25 Urine Blood Negative (NEGATIVE) 09/10/18 11:25 Urine Nitrite Negative (NEGATIVE) 09/10/18 11:25 Urine Bilirubin Negative (NEGATIVE) 09/10/18 11:25 Urine Urobilinogen 0.2 mg/dL (0.2-1.0) 09/10/18 11:25 Ur Leukocyte Esterase Negative (NEGATIVE) 09/10/18 11:25 RPR Titer Nonreactive (NONREACTIVE) 09/09/18 08:00 HIV 1&2 Ag/Ab, 4th Gen Non reactive (Non Reactive) 09/09/18 10:00 HIV 1&2 Antibody Screen Cancelled 09/09/18 08:00 HIV P24 Antigen Cancelled 09/09/18 08:00 lab noted Assessment: 09/11/18 13:46 benzo and opiate withdrawal sx Plan: continue benzo and opiate detox
[2018-09-11] MEDS: SELENIUM SULFIDE 2.5% LOTION 4 OZ. TP SCH (15:01)
--- NOTE | 2018-09-11 17:51 | PN ---
[facility] Progress Note Note: Psychiatry Attending's note (follow-up) : Patient came spontaneously to office. Met with conventional mortgage underwriter. Complaint : seroquel not effective at 50 mg/hs. Mr Martinez requests increase to 100 mg at bedtime. Patient is reminded of side effects/benefits. Ordered : seroquel 100 mg po hs. Verbal consent granted to
[2018-09-11] MEDS: hydrOXYzine PAMOATE 25 MG CAPSULE (FP) PO PRN (17:57)
[2018-09-11] MEDS: THIAMINE HCL 100 MG TABLET (FP) PO SCH (21:51)
[2018-09-11] MEDS: QUEtiapine FUMARATE 100 MG TABLET (FP) PO SCH (21:51)
[2018-09-11] MEDS: MELATONIN 5 MG TABLETS PO PRN (21:52)
[2018-09-12] MEDS: hydrOXYzine PAMOATE 25 MG CAPSULE (FP) PO PRN ×3 (07:25→21:43)
[2018-09-12] MEDS ORDERED: METHADONE HCL 10 MG TABLET (FOR DETOX USE ONLY) PO ONE (10:00)
[2018-09-12] MEDS: PRENATAL VITAMINS W/ FOLIC ACID TABLET (FP) PO SCH (10:42)
[2018-09-12] MEDS: HYDROCORTISONE 1% TOPICAL CREAM 30 GM TUBE TP SCH ×2 (10:43→21:43)
[2018-09-12] MEDS: SELENIUM SULFIDE 2.5% LOTION 4 OZ. TP SCH (10:43)
[2018-09-12] MEDS: NICOTINE 21 MG/24 HOURS TOPICAL PATCH TD SCH (10:43)
--- NOTE | 2018-09-12 11:58 | PN ---
S CIWA - CIWA Score Nausea/Vomitin-No Nausea/No Vomiting Muscle Tremors: 2 (Restless Legs, Particularly At night.) Anxiety: 3 Agitation: 1-Slight > Activity Paroxysmal Sweats: No Perspiration Orientation: 0-Oriented Tacttile Disturbances: 2-Mild Itch/Numbness/Burn Auditory Disturbances: 3-Moderate Harsh/Frighten Visual Disturbances: 0-None Headache: 0-None Present CIWA-Ar Total Score: 11 BHS COWS - Scale Resting Pulse: 0= [place] 80 or Below Sweatin= Chills/Flushing Restless Observation: 1= Difficult to Sit Still Pupil Size: 0= Normal to Room Light Bone or Joint Aches: 1= Mild Discomfort Runny Nose/ Eye Tearin= None GI Upset > 30mins: 0= None Tremor Observation of Outstretched Hands: 2= Slight Tremor Visible (Restless Legs, Particularly At night.) Yawning Observation: 1= 1-2x During Session Anxiety or Irritability: 2=Irritable/Anxious Goose Flesh Skin: 0=Smooth Skin COWS Score: 8 S Progress Note (SOAP) Subjective: Anxious, Restless Legs (Generally At night while lying down). Objective: PATIENT A & O X 3, OBSERVED AMBULATING ON UNIT UNASSISTED. IN NO ACUTE DISTRESS. 09/12/18 11:57 Vital Signs Temperature 97.1 F L 09/12/18 09:25 Pulse Rate 75 09/12/18 09:25 Respiratory Rate 18 09/12/18 09:25 Blood Pressure 127/83 09/12/18 09:25 O2 Sat by Pulse Oximetry (%) Laboratory Tests 09/09/18 09/09/18 09/09/18 08:00 08:00 08:00 WBC 4.7 RBC 4.37 Hgb 12.6 Hct 37.3 MCV 85.5 MCH 28.9 MCHC 33.8 RDW 13.1 Plt Count 274 D MPV 7.5 D Sodium 140 Potassium 4.1 Chloride 103 Carbon Dioxide 31 Anion Gap 7 L BUN 10.7 Creatinine 0.8 Est GFR (CKD-EPI)AfAm 144.91 Est GFR (CKD-EPI)NonAf 125.03 Random Glucose 70 L Calcium 9.1 Total Bilirubin 1.0 AST 42 H ALT 76 H Alkaline Phosphatase 74 Total Protein 7.7 Albumin 3.7 Urine Color Urine Appearance Urine pH Ur Specific [place] Urine Protein Urine Glucose (UA) Urine Ketones Urine Blood Urine Nitrite Urine Bilirubin Urine Urobilinogen Ur Leukocyte Esterase RPR Titer HIV 1&2 Ag/Ab, 4th Gen HIV 1&2 Antibody Screen Cancelled HIV P24 Antigen Cancelled TB (QFT) Incubation TB Test (QFT) Nil TB Test (QFT) Mitogen TB Test (QFT) Antigen TB Test (QFT) TB Positive Criteria 09/09/18 09/09/18 09/09/18 08:00 09:00 10:00 WBC RBC Hgb Hct MCV MCH MCHC RDW Plt Count MPV Sodium Potassium Chloride Carbon Dioxide Anion Gap BUN Creatinine Est GFR (CKD-EPI)AfAm Est GFR (CKD-EPI)NonAf Random Glucose Calcium Total Bilirubin AST ALT Alkaline Phosphatase Total Protein Albumin Urine Color Urine Appearance Urine pH Ur Specific [place] Urine Protein Urine Glucose (UA) Urine Ketones Urine Blood Urine Nitrite Urine Bilirubin Urine Urobilinogen Ur Leukocyte Esterase RPR Titer Nonreactive HIV 1&2 Ag/Ab, 4th Gen Non reactive HIV 1&2 Antibody Screen HIV P24 Antigen TB (QFT) Incubation TB Test (QFT) Nil 0.03 TB Test (QFT) Mitogen >10.00 TB Test (QFT) Antigen 0.03 TB Test (QFT) Negative TB Positive Criteria 09/10/18 11:25 WBC RBC Hgb Hct MCV MCH MCHC RDW Plt Count MPV Sodium Potassium Chloride Carbon Dioxide Anion Gap BUN Creatinine Est GFR (CKD-EPI)AfAm Est GFR (CKD-EPI)NonAf Random Glucose Calcium Total Bilirubin AST ALT Alkaline Phosphatase Total Protein Albumin Urine Color Yellow Urine Appearance Clear Urine pH 8.5 H D Ur Specific [place] 1.008 L Urine Protein Negative Urine Glucose (UA) Negative Urine Ketones Negative Urine Blood Negative Urine Nitrite Negative Urine Bilirubin Negative Urine Urobilinogen 0.2 Ur Leukocyte Esterase Negative RPR Titer HIV 1&2 Ag/Ab, 4th Gen HIV 1&2 Antibody Screen HIV P24 Antigen TB (QFT) Incubation TB Test (QFT) Nil TB Test (QFT) Mitogen TB Test (QFT) Antigen TB Test (QFT) TB Positive Criteria LABS NOTED. Assessment: 09/12/18 11:58 WITHDRAWAL SYMPTOMS. Plan: CONTINUE DETOX. PATIENT SCHEDULED FOR D/C FROM DETOX UNIT TOMORROW.
[2018-09-12] MEDS: QUEtiapine FUMARATE 100 MG TABLET (FP) PO SCH (21:43)
[2018-09-12] MEDS: THIAMINE HCL 100 MG TABLET (FP) PO SCH (21:43)
[2018-09-13] MEDS ORDERED: METHADONE HCL 5 MG TABLET (FOR DETOX USE ONLY) PO ONE (06:00)
[2018-09-13 09:18] VITALS: BP 142/90; PULSE 92; TEMP 97.1
[2018-09-13] MEDS: PRENATAL VITAMINS W/ FOLIC ACID TABLET (FP) PO SCH (09:27)
[2018-09-13] MEDS: HYDROCORTISONE 1% TOPICAL CREAM 30 GM TUBE TP SCH (09:28)
[2018-09-13] MEDS: SELENIUM SULFIDE 2.5% LOTION 4 OZ. TP SCH (09:28)
[2018-09-13] MEDS: NICOTINE 21 MG/24 HOURS TOPICAL PATCH TD SCH (09:28)
--- NOTE | 2018-09-13 12:25 | DS ---
[facility] Detox Discharge Summary Admission Date: 09/08/18 Discharge Date: 09/13/18 - History Present History: Alcohol Dependence Additional Comments: 23 years old male admitted on 09/11/18 for alcohol withdrawal management no complication through out the detox stay patient is alert oriented x 3 no shortness of breathe no dizziness ate 100% breakfast showered appeared well rested lab result explained and negative alcohol misuse were described - Physical Exam Results Vital Signs: Vital Signs Temperature 97.1 F L 09/13/18 09:17 Pulse Rate 92 H 09/13/18 09:17 Respiratory Rate 20 09/13/18 09:17 Blood Pressure 142/90 09/13/18 09:17 O2 Sat by Pulse Oximetry (%) Pertinent Admission Physical Exam Findings: alcohol withdrawal sx Laboratory Last Values WBC 4.7 K/mm3 (4.0-10.0) 09/09/18 08:00 RBC 4.37 M/mm3 (4.00-5.60) 09/09/18 08:00 Hgb 12.6 GM/dL (11.7-16.9) 09/09/18 08:00 Hct 37.3 % (35.4-49) 09/09/18 08:00 MCV 85.5 fl (80-96) 09/09/18 08:00 MCH 28.9 pg (25.7-33.7) 09/09/18 08:00 MCHC 33.8 g/dl (32.0-35.9) 09/09/18 08:00 RDW 13.1 % (11.9-15.9) 09/09/18 08:00 Plt Count 274 K/MM3 (134-434) D 09/09/18 08:00 MPV 7.5 fl (7.5-11.1) D 09/09/18 08:00 Sodium 140 mmol/L (136-145) 09/09/18 08:00 Potassium 4.1 mmol/L (3.5-5.1) 09/09/18 08:00 Chloride 103 mmol/L (98-107) 09/09/18 08:00 Carbon Dioxide 31 mmol/L (21-32) 09/09/18 08:00 Anion Gap 7 MMOL/L (8-16) L 09/09/18 08:00 BUN 10.7 mg/dL (7-18) 09/09/18 08:00 Creatinine 0.8 mg/dL (0.55-1.3) 09/09/18 08:00 Est GFR (CKD-EPI)AfAm 144.91 09/09/18 08:00 Est GFR (CKD-EPI)NonAf 125.03 09/09/18 08:00 Random Glucose 70 mg/dL (74-106) L 09/09/18 08:00 Calcium 9.1 mg/dL (8.5-10.1) 09/09/18 08:00 Total Bilirubin 1.0 mg/dL (0.2-1) 09/09/18 08:00 AST 42 U/L (15-37) H 09/09/18 08:00 ALT 76 U/L (13-61) H 09/09/18 08:00 Alkaline Phosphatase 74 U/L (45-117) 09/09/18 08:00 Total Protein 7.7 g/dl (6.4-8.2) 09/09/18 08:00 Albumin 3.7 g/dl (3.4-5.0) 09/09/18 08:00 Urine Color Yellow 09/10/18 11:25 Urine Appearance Clear 09/10/18 11:25 Urine pH 8.5 (5.0-8.0) H D 09/10/18 11:25 Ur Specific [place] 1.008 (1.010-1.035) L 09/10/18 11:25 Urine Protein Negative (NEGATIVE) 09/10/18 11:25 Urine Glucose (UA) Negative (NEGATIVE) 09/10/18 11:25 Urine Ketones Negative (NEGATIVE) 09/10/18 11:25 Urine Blood Negative (NEGATIVE) 09/10/18 11:25 Urine Nitrite Negative (NEGATIVE) 09/10/18 11:25 Urine Bilirubin Negative (NEGATIVE) 09/10/18 11:25 Urine Urobilinogen 0.2 mg/dL (0.2-1.0) 09/10/18 11:25 Ur Leukocyte Esterase Negative (NEGATIVE) 09/10/18 11:25 RPR Titer Nonreactive (NONREACTIVE) 09/09/18 08:00 HIV 1&2 Ag/Ab, 4th Gen Non reactive (Non Reactive) 09/09/18 10:00 HIV 1&2 Antibody Screen Cancelled 09/09/18 08:00 HIV P24 Antigen Cancelled 09/09/18 08:00 TB (QFT) Incubation (.) 09/09/18 09:00 TB Test (QFT) Nil 0.03 IU/mL (.) 09/09/18 09:00 TB Test (QFT) Mitogen >10.00 IU/mL (.) 09/09/18 09:00 TB Test (QFT) Antigen 0.03 IU/mL (.) 09/09/18 09:00 TB Test (QFT) Negative (Negative) 09/09/18 09:00 TB Positive Criteria (.) 09/09/18 09:00 lab noted - Treatment Hospital Course: Detox Protocol Followed, Detoxed Safely, Responded well, Discharged Condition Good, Rehab Referral Accepted Patient has Accepted a Rehab Referral to: [facility] - Medication Discharge Medications: Ambulatory Orders NK [No Known Home Medication] 12/19/16 - Diagnosis (1) Alcohol dependence with uncomplicated withdrawal Status: Acute (2) Nicotine dependence Status: Acute Qualifiers: Nicotine product type: cigarettes Substance use status: in withdrawal Qualified Code(s): F17.213 - Nicotine dependence, cigarettes, with withdrawal (3) Substance induced mood disorder Status: Suspected - AMA Did Patient Leave Against Medical Advice: No
== END 2018-09-13 10:02 | disposition home or self-care (01) | DRG 773 ==
LOC: YASAS 09:55 → Y3N 16:09
PROVIDERS: ADMIT Surgery; ATTEND Surgery
PROC: HZ2ZZZZ Detoxification Services for Substance Abuse Treatment (ICD-10-PCS; principal; 2018-09-08)
DX: F10.230 Alcohol dependence with withdrawal, uncomplicated (principal); F11.20 Opioid dependence, uncomplicated; F13.230 Sedative, hypnotic or anxiolytic dependence with withdrawal, uncomplicated; F14.20 Cocaine dependence, uncomplicated; F12.20 Cannabis dependence, uncomplicated; F17.210 Nicotine dependence, cigarettes, uncomplicated; F19.24 Other psychoactive substance dependence with psychoactive substance-induced mood disorder; F41.9 Anxiety disorder, unspecified; F32.9 Major depressive disorder, single episode, unspecified; G47.00 Insomnia, unspecified
CPT/HCPCS: 36415; 80053; 81003; 85027; 86480; 86593; 87389; J0735

== ENCOUNTER 2018-11-21 08:45 | Inpatient (IN) | payer OTHER ==
[2018-11-21 09:36] VITALS: BMI 23.4
--- NOTE | 2018-11-21 09:56 | HP ---
COWS - Scale Resting Pulse: 0= [place] 80 or Below Sweatin= Chills/Flushing Restless Observation: 1= Difficult to Sit Still Pupil Size: 1= Pupils >than Normal Bone or Joint Aches: 4=Acute Joint/Muscle Pain Runny Nose/ Eye Tearin= Nasal Congestion GI Upset > 30mins: 1= Stomach Cramp Tremor Observation: 1= Tremor [place], Not Seen Yawning Observation: 1= 1-2x During Session Anxiety or Irritability: 1=Feels Anxious/Irritable Goose Flesh Skin: 0=Smooth Skin (appropriate for detox) COWS Score: 12 CIWA Score - Admission Criteria [facility]ASAS Guidelines: Admission for Medically Managed Detox: Requires at least one of the followin. CIWA greater than 12 2. Seizures within the past 24 hours 3. Delirium tremens within the past 24 hours 4. Hallucinations within the past 24 hours 5. Acute intervention needed for co occurring medical disorder 6. Acute intervention needed for co occurring psychiatric disorder 7. Severe withdrawal that cannot be handled at a lower level of care (continued vomiting, continued diarrhea, abnormal vital signs) requiring intravenous medication and/or fluids 8. Admitting History and Physical - Admission Chief Complaint: "I can't stop using. I continue to think about using." History of Present Illness: 23 year old male with opioid dependence with withdrawals He is using up to 20 bags of heroin per day, last used last night. He is using Xanax up to 6-8 pills per day illicitly on the streets. He smokes 1/2 ppd since 14 years old He denies other substances of abuse. PMH: None Psurg: None Psych: None All: None He has no pending legal issues. - Smoking History Smoking history: Current every day smoker Have you smoked in the past 12 months: Yes Aproximately how many cigarettes per day: 10 - Alcohol/Substance Use Hx Alcohol Use: No Admission ROS BHS - HPI Chief Complaint: "I can't stop using. I continue to think about using." Allergies/Adverse Reactions: Allergies Allergy/AdvReac Type Severity Reaction Status Date / Time No Known Allergies Allergy Verified 11/21/18 09:30 History of Present Illness: 23 year old male with opioid dependence with withdrawals He is using up to 20 bags of heroin per day, last used last night. He is using Xanax up to 6-8 pills per day illicitly on the streets. He smokes 1/2 ppd since 14 years old He denies other substances of abuse. PMH: None Psurg: None Psych: None All: None He has no pending legal issues. - Ebola screening Have you traveled outside of the country in the last 21 days: No Have you had contact with anyone from an Ebola affected area: No Have you been sick,other than usual withdrawal symptoms: No Do you have a fever: No Patient History - Patient Medical History Hx Anemia: No Hx Asthma: No Hx Chronic Obstructive Pulmonary Disease (COPD): No Hx Cancer: No Hx Cardiac Disorders: No Hx Congestive Heart Failure: No Hx Hypertension: No Hx Hypercholesterolemia: No Hx Pacemaker: No HX Cerebrovascular Accident: No Hx Seizures: No Hx Dementia: No Hx Diabetes: No Hx Gastrointestinal Disorders: No Hx Liver Disease: No Hx Genitourinary Disorders: No Hx Sexually Transmitted Disorders: No Hx Renal Disease (ESRD): No Hx Thyroid Disease: No Hx Human Immunodeficiency Virus (HIV): No (last 07/23 negative hx) Hx Hepatitis C: No Hx Depression: Yes (No meds; Requests eval) Hx Suicide Attempt: No (Denies S/I) Hx Bipolar Disorder: No Hx Schizophrenia: No - Patient Surgical History Past Surgical History: No Hx Neurologic Surgery: No Hx Cataract Extraction: No Hx Cardiac Surgery: No Hx Lung Surgery: No Hx Breast Surgery: No Hx Breast Biopsy: No Hx Abdominal Surgery: No Hx Appendectomy: No Hx Cholecystectomy: No Hx Genitourinary Surgery: No Hx Section: No Hx Orthopedic Surgery: No Anesthesia Reaction: No - PPD History Previous Implant?: Yes Date: 05/17/16 Results: 0 mm PPD to be Administered?: No - Smoking Cessation Smoking history: Current every day smoker Have you smoked in the past 12 months: Yes Aproximately how many cigarettes per day: 10 Cigars Per Day: 0 Hx Chewing Tobacco Use: No Initiated information on smoking cessation: Yes 'Breaking Loose' booklet given: 11/21/18 - Substances abused Heroin Substance route: Injection Frequency: Daily Amount used: 20 bags Age of first use: 17 Date of last use: 11/20/18 Alprazolam (Xanax) Substance route: Oral Frequency: Daily Amount used: 6 X2mg tabs Age of first use: 14 Date of last use: 11/20/18 Admission Physical Exam [facility] - Vital Signs Vital Signs: Vital Signs - 24 hr 11/21/18 09:27 Temperature 97.7 F Pulse Rate 66 Respiratory 18 Rate Blood Pressure 112/76 - Physical General Appearance: Yes: Mild Distress HEENTM: Yes: EOMI, Hearing grossly Normal, Normal ENT Inspection, Normocephalic , STEPHANIE, Pharynx Normal, Tm's normal Respiratory: Yes: Chest Non-Tender, Lungs Clear, Normal Breath Sounds, No Respiratory Distress, No Accessory Muscle Use Breast: Yes: Within Normal Limits Cardiology: Yes: Regular Rhythm, Regular Rate, S1, S2 Abdominal: Yes: Normal Bowel Sounds, Non Tender, Flat, Soft Genitourinary: Yes: Within Normal Limits Back: Yes: Within Normal Limits Musculoskeletal: Yes: full range of Motion, Gait Steady, Pelvis Stable Extremities: Yes: Normal Capillary Refill, Normal Inspection, Normal Range of Motion, Non-Tender Neurological: Yes: senior catering sales manager II-XII NML intact, Fully Oriented, Alert, Motor Strength 5/5, Normal Mood/Affect, Normal Response Integumentary: Yes: Normal Color, Warm Lymphatic: Yes: Within Normal Limits - Diagnostic (1) Alcohol dependence with uncomplicated withdrawal Current Visit: Yes Status: Acute (2) Cocaine dependence with withdrawal Current Visit: Yes Status: Acute (3) IVDU (intravenous drug user) Current Visit: Yes Status: Acute (4) Nicotine dependence Current Visit: Yes Status: Acute Qualifiers: Nicotine product type: cigarettes Substance use status: in withdrawal Qualified Code(s): F17.213 - Nicotine dependence, cigarettes, with withdrawal Cleared for Admission [facility] - Detox or Rehab [facility] Level of Care: Medically Managed Screened but not Admitted - Documentation of Visit Screened but not Admitted: No Breathalyzer - Breathalyzer Breathalyzer: 0 Urine Drug Screen - Test Device Lot number: [id number] Expiration date: 06/05/20 - Control Is test valid?: Yes - Results Drug screen NEGATIVE: No Urine drug screen results: FEN-Fentanyl, MOP-Opiates, OXY-Oxycodone Inpatient Rehab Admission - Rehab Decision to Admit Inpatient rehab admission?: No
[2018-11-21] MEDS ORDERED: IBUPROFEN 400 MG TABLET (FP) PO PRN (10:05)
[2018-11-21] MEDS ORDERED: MAGNESIUM CITRATE 300 ML BOTTLE PO PRN (10:05)
[2018-11-21] MEDS ORDERED: ACETAMINOPHEN 325 MG TABLET (FP) PO PRN ×2 (10:05)
[2018-11-21] MEDS ORDERED: cloNIDine HCL 0.1 MG TABLET PO PRN (10:05)
[2018-11-21] MEDS ORDERED: MAG HYDROX/AL HYDROX/SIMETH 30 ML UNIT-DOSE CUP PO PRN (10:05)
[2018-11-21] MEDS ORDERED: MENTHOL/PHENOL 1 EACH UD MM PRN (10:05)
[2018-11-21] MEDS ORDERED: BISMUTH SUBSALICYLATE 262 MG/15 ML BTL PO PRN (10:05)
[2018-11-21] MEDS ORDERED: MAGNESIUM HYDROX 2400MG/30ML ORAL SUSPENSION 30 ML CUP PO PRN (10:05)
[2018-11-21] MEDS ORDERED: MELATONIN 5 MG TABLETS PO PRN (10:05)
[2018-11-21] MEDS ORDERED: METHADONE HCL 10 MG TABLET (FOR DETOX USE ONLY) PO ONE (10:35)
[2018-11-21] MEDS: METHOCARBAMOL 500 MG TABLET PO PRN (11:19)
[2018-11-21] MEDS: hydrOXYzine PAMOATE 25 MG CAPSULE (FP) PO PRN (11:19)
[2018-11-21 14:36] LABS: HEMATOCRIT 44.8 % (35.4-49); MCH 29.1 pg (25.7-33.7); MCHC 33.5 g/dl (32.0-35.9); MEAN CELL VOLUME 86.7 fl (80-96); MEAN PLT VOLUME 7.7 fl (7.5-11.1); PLATELET COUNT 281 K/MM3 (134-434); RBC 5.17 M/mm3 (4.00-5.60); RDW 13.2 % (11.9-15.9); WHITE BLOOD COUNT 6.1 K/mm3 (4.0-10.0)
[2018-11-21 14:59] LABS: ALBUMIN 4.6 g/dl (3.4-5.0); BILIRUBIN,TOTAL 1.2 mg/dL (0.2-1); BLOOD UREA NITROGEN 13.8 mg/dL (7-18); CALCIUM 9.1 mg/dL (8.5-10.1); CREATININE 0.9 mg/dL (0.55-1.3); POTASSIUM 3.9 mmol/L (3.5-5.1); TOT PROT 8.6 g/dl (6.4-8.2)
[2018-11-21] MEDS: THIAMINE HCL 100 MG TABLET (FP) PO SCH (22:02)
[2018-11-22] MEDS ORDERED: METHADONE HCL 10 MG TABLET (FOR DETOX USE ONLY) ONE (09:49)
[2018-11-22] MEDS ORDERED: METHADONE HCL 5 MG TABLET (FOR DETOX USE ONLY) ONE (09:50)
[2018-11-22] MEDS ORDERED: METHADONE (DETOX) 20 MG, METHADONE (DETOX) 5 MG PO ONE (10:00)
[2018-11-22] MEDS: METHOCARBAMOL 500 MG TABLET PO PRN ×2 (10:25→23:06)
[2018-11-22] MEDS: hydrOXYzine PAMOATE 25 MG CAPSULE (FP) PO PRN (10:25)
[2018-11-22] MEDS: PRENATAL VITAMINS W/ FOLIC ACID TABLET (FP) PO SCH (10:25)
--- NOTE | 2018-11-22 13:41 | PN ---
BHS COWS - Scale Resting Pulse: 0= [place] 80 or Below Sweatin= Chills/Flushing Restless Observation: 1= Difficult to Sit Still Pupil Size: 0= Normal to Room Light Bone or Joint Aches: 1= Mild Discomfort Runny Nose/ Eye Tearin= Runny Nose/Eyes GI Upset > 30mins: 2= Nausea/Diarrhea Tremor Observation of Outstretched Hands: 1= Tremor [place], Not Seen Yawning Observation: 1= 1-2x During Session Anxiety or Irritability: 4=Extreme Anxiety Goose Flesh Skin: 0=Smooth Skin COWS Score: 13 BHS Progress Note (SOAP) Subjective: c/o of body aches chills, anxious, interrupted sleep, sweats Objective: 11/22/18 13:41 Vital Signs Temperature 99.1 F 11/22/18 13:25 Pulse Rate 63 11/22/18 13:25 Respiratory Rate 16 11/22/18 13:25 Blood Pressure 124/75 11/22/18 13:25 O2 Sat by Pulse Oximetry (%) Laboratory Last Values WBC 6.1 K/mm3 (4.0-10.0) 11/21/18 10:15 RBC 5.17 M/mm3 (4.00-5.60) 11/21/18 10:15 Hgb 15.0 GM/dL (11.7-16.9) 11/21/18 10:15 Hct 44.8 % (35.4-49) D 11/21/18 10:15 MCV 86.7 fl (80-96) 11/21/18 10:15 MCH 29.1 pg (25.7-33.7) 11/21/18 10:15 MCHC 33.5 g/dl (32.0-35.9) 11/21/18 10:15 RDW 13.2 % (11.9-15.9) 11/21/18 10:15 Plt Count 281 K/MM3 (134-434) 11/21/18 10:15 MPV 7.7 fl (7.5-11.1) 11/21/18 10:15 Sodium 140 mmol/L (136-145) 11/21/18 10:15 Potassium 3.9 mmol/L (3.5-5.1) 11/21/18 10:15 Chloride 104 mmol/L (98-107) 11/21/18 10:15 Carbon Dioxide 28 mmol/L (21-32) 11/21/18 10:15 Anion Gap 8 MMOL/L (8-16) 11/21/18 10:15 BUN 13.8 mg/dL (7-18) 11/21/18 10:15 Creatinine 0.9 mg/dL (0.55-1.3) 11/21/18 10:15 Est GFR (CKD-EPI)AfAm 138.06 11/21/18 10:15 Est GFR (CKD-EPI)NonAf 119.12 11/21/18 10:15 Random Glucose 57 mg/dL (74-106) L 11/21/18 10:15 Calcium 9.1 mg/dL (8.5-10.1) 11/21/18 10:15 Total Bilirubin 1.2 mg/dL (0.2-1) H 11/21/18 10:15 AST 38 U/L (15-37) H 11/21/18 10:15 ALT 73 U/L (13-61) H 11/21/18 10:15 Alkaline Phosphatase 79 U/L (45-117) 11/21/18 10:15 Total Protein 8.6 g/dl (6.4-8.2) H 11/21/18 10:15 Albumin 4.6 g/dl (3.4-5.0) 11/21/18 10:15 RPR Titer Nonreactive (NONREACTIVE) 11/21/18 10:15 HIV 1&2 Ag/Ab, 4th Gen Non reactive (Non Reactive) 11/21/18 10:15 Assessment: 11/22/18 13:43 Aox3 no acute distress, anxious No adventitious breath sounds full ROM no gait disturbance withdrawal sx Plan: continue detox continue to monitor
[2018-11-22] MEDS: diazePAM 5 MG TABLET PO PRN ×3 (15:10→23:13)
[2018-11-22] MEDS: THIAMINE HCL 100 MG TABLET (FP) PO SCH (23:06)
[2018-11-23] MEDS: diazePAM 5 MG TABLET PO PRN ×2 (05:04→09:18)
[2018-11-23] MEDS: PRENATAL VITAMINS W/ FOLIC ACID TABLET (FP) PO SCH (09:18)
--- NOTE | 2018-11-23 09:20 | PN ---
[facility] COWS - Scale Resting Pulse: 1= [place] 81-100 Sweatin= Chills/Flushing Restless Observation: 1= Difficult to Sit Still Pupil Size: 0= Normal to Room Light Bone or Joint Aches: 1= Mild Discomfort Runny Nose/ Eye Tearin= Nasal Congestion GI Upset > 30mins: 1= Stomach Cramp Tremor Observation of Outstretched Hands: 1= Tremor [place], Not Seen Yawning Observation: 1= 1-2x During Session Anxiety or Irritability: 2=Irritable/Anxious Goose Flesh Skin: 0=Smooth Skin COWS Score: 10 [facility] Progress Note (SOAP) Subjective: c/o anorexia, interrupted sleep, chills Objective: 11/23/18 09:17 Vital Signs Temperature 96.6 F L 11/23/18 06:23 Pulse Rate 93 H 11/23/18 06:23 Respiratory Rate 18 11/23/18 06:23 Blood Pressure 129/85 11/23/18 06:23 O2 Sat by Pulse Oximetry (%) Laboratory Last Values WBC 6.1 K/mm3 (4.0-10.0) 11/21/18 10:15 RBC 5.17 M/mm3 (4.00-5.60) 11/21/18 10:15 Hgb 15.0 GM/dL (11.7-16.9) 11/21/18 10:15 Hct 44.8 % (35.4-49) D 11/21/18 10:15 MCV 86.7 fl (80-96) 11/21/18 10:15 MCH 29.1 pg (25.7-33.7) 11/21/18 10:15 MCHC 33.5 g/dl (32.0-35.9) 11/21/18 10:15 RDW 13.2 % (11.9-15.9) 11/21/18 10:15 Plt Count 281 K/MM3 (134-434) 11/21/18 10:15 MPV 7.7 fl (7.5-11.1) 11/21/18 10:15 Sodium 140 mmol/L (136-145) 11/21/18 10:15 Potassium 3.9 mmol/L (3.5-5.1) 11/21/18 10:15 Chloride 104 mmol/L (98-107) 11/21/18 10:15 Carbon Dioxide 28 mmol/L (21-32) 11/21/18 10:15 Anion Gap 8 MMOL/L (8-16) 11/21/18 10:15 BUN 13.8 mg/dL (7-18) 11/21/18 10:15 Creatinine 0.9 mg/dL (0.55-1.3) 11/21/18 10:15 Est GFR (CKD-EPI)AfAm 138.06 11/21/18 10:15 Est GFR (CKD-EPI)NonAf 119.12 11/21/18 10:15 Random Glucose 57 mg/dL (74-106) L 11/21/18 10:15 Calcium 9.1 mg/dL (8.5-10.1) 11/21/18 10:15 Total Bilirubin 1.2 mg/dL (0.2-1) H 11/21/18 10:15 AST 38 U/L (15-37) H 11/21/18 10:15 ALT 73 U/L (13-61) H 11/21/18 10:15 Alkaline Phosphatase 79 U/L (45-117) 11/21/18 10:15 Total Protein 8.6 g/dl (6.4-8.2) H 11/21/18 10:15 Albumin 4.6 g/dl (3.4-5.0) 11/21/18 10:15 RPR Titer Nonreactive (NONREACTIVE) 11/21/18 10:15 HIV 1&2 Ag/Ab, 4th Gen Non reactive (Non Reactive) 11/21/18 10:15 Assessment: 11/23/18 09:18 Aox3 no acute distress ambulating in the unit, no gait disturbance Plan: increase PO fluids d/c acetaminophen labs reviewed with patient, advised to follow up with primary care provider upon discharge, harm reduction reviewed continue detox continue to monitor
[2018-11-23 09:28] VITALS: BP 123/83; PULSE 91; TEMP 97.1
[2018-11-23] MEDS ORDERED: METHADONE HCL 10 MG TABLET (FOR DETOX USE ONLY) PO ONE (10:00)
--- NOTE | 2018-11-23 10:36 | PN ---
[facility] Progress Note Note: Patient AMA, denies SI/HI. Patient reports he needs to leave today to go the welfare office and needs to travel to [place] on Monday. Patient advised on the risk of interrupting treatment which include relapse, overdose or . Patient was given copy of outpatient referral. Narcan Kit sent to local pharmacy. Patient to follow up with primary care provider. If worsening symptoms are present patient to seek medial attention. Patient verbalizes understanding.
--- NOTE | 2018-11-23 12:06 | DS ---
[facility] Detox Discharge Summary Admission Date: 11/21/18 Discharge Date: 11/23/18 - History Present History: Cocaine Dependence, Opioid Dependence Additional Comments: Patient left AMA. Patient advised on the risk of interrupting treatment. Naracn kit sent to pharmacy on file. Patient to follow up with outpatient referrals. Follow up with PCP. If worsening symptoms are present patient to seek medical attention. - Physical Exam Results Vital Signs: Vital Signs Temperature 97.1 F L 11/23/18 09:27 Pulse Rate 91 H 11/23/18 09:27 Respiratory Rate 18 11/23/18 09:27 Blood Pressure 123/83 11/23/18 09:27 O2 Sat by Pulse Oximetry (%) - Treatment Hospital Course: Discharged Condition Good Patient has Accepted a Rehab Referral to: [facility] referrals - Medication Discharge Medications: Ambulatory Orders Naloxone HCl [Narcan] 4 mg NS 1XPACU #2 spray 11/23/18 - Diagnosis (1) Cocaine dependence with withdrawal Status: Acute (2) IVDU (intravenous drug user) Status: Acute (3) Nicotine dependence Status: Acute Qualifiers: Nicotine product type: cigarettes Substance use status: in withdrawal Qualified Code(s): F17.213 - Nicotine dependence, cigarettes, with withdrawal (4) Opioid dependence with withdrawal Status: Acute (5) Cocaine dependence Status: Chronic Qualifiers: Substance use status: uncomplicated Qualified Code(s): F14.20 - Cocaine dependence, uncomplicated - AMA Did Patient Leave Against Medical Advice: Yes
[2018-11-24] MEDS ORDERED: METHADONE (DETOX) 10 MG, METHADONE (DETOX) 5 MG PO ONE (10:00)
[2018-11-25] MEDS ORDERED: METHADONE HCL 10 MG TABLET (FOR DETOX USE ONLY) PO ONE (10:00)
[2018-11-26] MEDS ORDERED: METHADONE HCL 5 MG TABLET (FOR DETOX USE ONLY) PO ONE (06:00)
== END 2018-11-23 11:31 | disposition left against medical advice (07) | DRG 770 ==
LOC: YASAS 08:45 → Y3N 10:21
PROVIDERS: ADMIT Allergy & Immunology; ATTEND Allergy & Immunology
PROC: HZ2ZZZZ Detoxification Services for Substance Abuse Treatment (ICD-10-PCS; principal; 2018-11-21)
DX: F11.23 Opioid dependence with withdrawal (principal); F13.20 Sedative, hypnotic or anxiolytic dependence, uncomplicated; F14.20 Cocaine dependence, uncomplicated; F17.213 Nicotine dependence, cigarettes, with withdrawal; F32.9 Major depressive disorder, single episode, unspecified
CPT/HCPCS: 36415; 80053; 85027; 86593; 87389; J0735